=== PATIENT | female | born 1995 | race Caucasian/White ===

== ENCOUNTER 2016-08-06 18:56 | Emergency (ER) | payer OTHER ==
[~2016-08-06] VITALS: Ht 157.5 cm; Wt 51.3 kg
[~2016-08-06 18:56] MED LIST: NORCO 5/325 MG1 TAB PO; ZOFRAN4 M1 PO
[2016-08-06 19:21] VITALS: BP 140/87
--- NOTE | 2016-08-06 19:31 | NUR ---
AMBULATED TO ER BED 4
--- NOTE | 2016-08-06 19:47 | NUR ---
PT BIB BOYFRIEND C/O LOWER ABD PAIN AND N/V SINCE THIS AM. MEDICAL HX OF CHOLECYSTECTOMY AND HTN. PT TAKES FAMTODINE AND DICYCLOMINE FOR GASTRITIS SEEN IN [place] 1 MONTH AGO. . PT STATES N/V/; SKIN IS PINK/WARM/DRY; AAOX4 WITH EVEN AND STEADY GAIT; LUNGS CLEAR BL; HR EVEN AND REGULAR; PT DENIES ANY FEVER, CP, SOB, OR COUGH AT THIS TIME; PATIENT STATES PAIN OF abd pain 10/10 AT THIS TIME; VSS; PATIENT POSITIONED FOR COMFORT; HOB ELEVATED; BEDRAILS UP X2; BED DOWN. ER MD MADE AWARE OF PT STATUS.
--- NOTE | 2016-08-06 19:58 | NUR ---
dr hare at bedside.
[2016-08-06] MEDS ORDERED: NACL 0.9% 500 ML IV ONE (20:04)
[2016-08-06] MEDS ORDERED: ONDANSETRON 4 MG/2 ML VIAL IVP ONE (20:05)
[2016-08-06] MEDS ORDERED: KETOROLAC 30 MG/ML VIAL IVP ONE (20:05)
[2016-08-06] MEDS ORDERED: PANTOPRAZOLE 40 MG INJ VIAL IVP ONE (21:00)
[2016-08-06 21:53] VITALS: BP 126/52
--- NOTE | 2016-08-06 21:54 | NUR ---
Patient discharged with v/s stable. Written and verbal after care instructions given and explained. Patient alert, oriented and verbalized understanding of instructions. Ambulatory with steady gait. All questions addressed prior to discharge. ID band removed. Patient advised to follow up with PMD. Rx of maalox, tramadol, zofran, zantac given. Patient educated on indication of medication including possible reaction and side effects. Opportunity to ask questions provided and answered.
== END 2016-08-06 21:53 | disposition home or self-care (01) ==
LOC: MED 19:01
DX: K29.70 Gastritis, unspecified, without bleeding (principal); R03.0 Elevated blood-pressure reading, without diagnosis of hypertension; Z90.49 Acquired absence of other specified parts of digestive tract
CPT/HCPCS: 36415; 80053; 83690; 85025; 96374; 96375; 99284; C9113; J1885; J2405

== ENCOUNTER 2016-08-21 21:14 | Emergency (ER) | payer OTHER ==
[~2016-08-21] VITALS: Ht 160 cm; Wt 50.8 kg
[2016-08-21 21:43] VITALS: BP 140/96
--- NOTE | 2016-08-21 22:29 | NUR ---
TO ER BED 1
--- NOTE | 2016-08-21 22:30 | NUR ---
21Y F BIB FRIEND C/O AB PAIN AND VOMITING X 4 DAYS. PT STATES SINCE HER GALLBLADDER BEEN REMOVED ON DECEMBER 2015 HERE AT [facility] HER BOWEL MOVEMENT HAS NOT BEEN THE SAME, THOUGH SHE DOES HAVE A BM AT LEAST ONCE DAILY PER PT. SKIN IS PINK/WARM/DRY; AAOX4 WITH EVEN AND STEADY GAIT; LUNGS CLEAR BL; HR EVEN AND REGULAR; PT DENIES ANY FEVER, CP, SOB, OR COUGH AT THIS TIME; PATIENT STATES PAIN OF 10/10 AT THIS TIME; VSS; PATIENT POSITIONED FOR COMFORT; HOB ELEVATED; BEDRAILS UP X2; BED DOWN. ER MD MADE AWARE OF PT STATUS.
--- NOTE | 2016-08-21 23:00 | NUR ---
Patient being evaluated by physician dr hare at bedside.
--- NOTE | 2016-08-21 23:15 | NUR ---
PT MOVED TO ER BED 8
[2016-08-21] MEDS ORDERED: ALUMINUM HYD/MAG/SIMETHICONE 30 ML UDC PO ONE (23:20)
[2016-08-21] MEDS ORDERED: PANTOPRAZOLE 40 MG TABEC PO ONE (23:20)
[2016-08-21] MEDS ORDERED: BELLADONNA/PHENOBARBITAL 5 ML ORASYR PO ONE (23:20)
[2016-08-21] MEDS ORDERED: LIDOCAINE VISCOUS 2% 20 ML UDC PO ONE (23:20)
[2016-08-22 00:49] VITALS: BP 140/96
--- NOTE | 2016-08-22 00:49 | NUR ---
Patient discharged with v/s stable. Written and verbal after care instructions given and explained. Patient alert, oriented and verbalized understanding of instructions. Ambulatory with steady gait. All questions addressed prior to discharge. ID band removed. Patient advised to follow up with PMD. Rx of PROTONIX AND ZOFRAN given. Patient educated on indication of medication including possible reaction and side effects. Opportunity to ask questions provided and answered. BOYFRIEND AT BEDSIDE
== END 2016-08-22 00:49 | disposition home or self-care (01) ==
LOC: MED 21:14
DX: K21.9 Gastro-esophageal reflux disease without esophagitis (principal); Z32.02 Encounter for pregnancy test, result negative

== ENCOUNTER 2017-01-11 22:22 | Inpatient (IN) | payer OTHER ==
[~2017-01-11] VITALS: Ht 157.5 cm; Wt 44.5 kg
[~2017-01-11 22:22] MED LIST changes: +HYDR-4446 PO; -NORCO 5/325 MG1 TAB PO; +ONDA4TAB PO; -ZOFRAN4 M1 PO
[2017-01-11 22:32] VITALS: BP 118/65
[2017-01-11] MEDS ORDERED: ONDANSETRON 4 MG ODT PO ONE (22:40)
[2017-01-11 23:01] LABS: BASOPHILS # (AUTO) 0.2 K/uL (0.00-0.22); BASOPHILS % (AUTO) 1.1 % (0.0-2.0); EOSINOPHILS # (AUTO) 0.3 K/uL (0-0.4); EOSINOPHILS % (AUTO) 1.6 % (0.0-4.0); HEMATOCRIT 37.2 % (36-48); HEMOGLOBIN 12.8 g/dL (12.0-16.0); LYMPHOCYTES # (AUTO) 0.7 K/uL (2.5-16.5); MEAN CORPUSCULAR HEMOGLOBIN 32 pg (27-31); MEAN CORPUSCULAR HGB CONC 34 g/dL (33-37); MEAN CORPUSCULAR VOLUME 92 fL (80-94); MONOCYTES # (AUTO) 0.2 K/uL (0.8-1.0); MONOCYTES % (AUTO) 0.9 % (1.7-9.3); NEUTROPHILS # (AUTO) 16.5 K/uL (1.8-7.7); PLATELET COUNT (AUTO) 251 K/uL (140-450); RED BLOOD CELL COUNT(AUTO) 4.03 MIL/uL (4.20-5.40); RED CELL DISTRIBUTION WIDTH 12.2 % (11.6-13.7); WHITE BLOOD COUNT (AUTO) 17.9 K/uL (4.8-10.8)
[2017-01-11 23:13] LABS: ANION GAP 19.8 (8-16); CALCIUM 9.5 mg/dL (8.5-10.1); CARBON DIOXIDE 19.9 mmol/L (21-32); CREATININE 0.7 mg/dL (0.6-1.3); POTASSIUM 3.7 mmol/L (3.5-5.1)
[2017-01-11 23:21] LABS: ALBUMIN 3.8 g/dL (3.4-5.0); TOTAL BILIRUBIN 0.4 mg/dL (0.0-1.0); TOTAL PROTEIN, SERUM 7.7 g/dL (6.4-8.2)
[2017-01-11 23:22] LABS: NEUTROPHILS % (AUTO) 92.4 % (42.2-75.2)
[2017-01-11 23:53] LABS: BILIRUBIN,URINE NEGATIVE (NEGATIVE); BLOOD, URINE TRACE-I (NEGATIVE); COLOR,URINE YELLOW (YELLOW); LEUKOCYTE ESTERASE ,URINE NEGATIVE (NEGATIVE); NITRITE, URINE NEGATIVE (NEGATIVE); PROTEIN,URINE 2+ (NEGATIVE); UGLUCOSE NEGATIVE (NEGATIVE)
[2017-01-12 00:01] LABS: APPEARANCE,URINE SLIGHTLY CLOUDY (CLEAR)
[2017-01-12 00:02] LABS: RBC,URINE 0-5 (RARE) /HPF (0-5)
[2017-01-12 00:03] LABS: BACTERIA,URINE 2+ /HPF (None Seen); MUCUS,URINE 1+ /LPF (None Seen); SQUAMOUS EPITHELIAL CELL,UR 20-50 /LPF (0-3 (FEW))
[2017-01-12] MEDS ORDERED: NACL 0.9% 1,000 ML IV ONE ×3 (00:10→01:55)
[2017-01-12] MEDS ORDERED: MORPHINE SULFATE 4 MG/ML SYR IVP ONE (00:10)
[2017-01-12] MEDS ORDERED: ONDANSETRON 4 MG/2 ML VIAL IVP ONE (00:10)
[2017-01-12 00:37] LABS: LACTIC ACID 2.7 mmol/L (0.4-2.0)
[2017-01-12] MEDS ORDERED: cefTRIAXone 1,000 MG VIAL ONE (00:55)
[2017-01-12] MEDS ORDERED: NACL 0.9% 1,000 ML IV SCH (02:10)
[2017-01-12] MEDS ORDERED: PANTOPRAZOLE 40 MG INJ VIAL IVP ONE (02:30)
[2017-01-12 03:19] VITALS: BP 97/59
[2017-01-12 04:00] VITALS: BP 126/85
[2017-01-12] MEDS: ONDANSETRON 4 MG/2 ML VIAL IVP PRN ×2 (04:13→08:26)
[2017-01-12] MEDS: MORPHINE SULFATE 2 MG/ML SYR IVP PRN ×2 (04:20→08:33)
[2017-01-12 08:00] VITALS: BP 127/86
[2017-01-12] MEDS: ENOXAPARIN 40 MG/0.4 ML SYR SUBQ SCH (08:31)
[2017-01-12 12:00] VITALS: BP 91/64
[2017-01-12 16:00] VITALS: BP 93/59
[2017-01-12] MEDS: NACL 0.9% 1,000 ML IV SCH (19:47)
[2017-01-12 20:00] VITALS: BP 103/64
[2017-01-13] VITALS (7 sets, daily range): BP systolic 93–135; BP diastolic 55–97
[2017-01-13] MEDS: NACL 0.9% 1,000 ML IV SCH ×2 (05:22→17:43)
[2017-01-13 06:01] LABS: BASOPHILS # (AUTO) 0.3 K/uL (0.00-0.22); BASOPHILS % (AUTO) 3.1 % (0.0-2.0); EOSINOPHILS # (AUTO) 0.1 K/uL (0-0.4); EOSINOPHILS % (AUTO) 1.4 % (0.0-4.0); HEMATOCRIT 28.5 % (36-48); HEMOGLOBIN 9.4 g/dL (12.0-16.0); LYMPHOCYTES # (AUTO) 2.9 K/uL (2.5-16.5); LYMPHOCYTES % (AUTO) 30.3 % (20.5-51.1); MEAN CORPUSCULAR HEMOGLOBIN 31 pg (27-31); MEAN CORPUSCULAR HGB CONC 33 g/dL (33-37); MEAN CORPUSCULAR VOLUME 94 fL (80-94); MONOCYTES # (AUTO) 0.6 K/uL (0.8-1.0); MONOCYTES % (AUTO) 6.5 % (1.7-9.3); NEUTROPHILS # (AUTO) 5.6 K/uL (1.8-7.7); NEUTROPHILS % (AUTO) 58.7 % (42.2-75.2); PLATELET COUNT (AUTO) 183 K/uL (140-450); RED BLOOD CELL COUNT(AUTO) 3.04 MIL/uL (4.20-5.40); RED CELL DISTRIBUTION WIDTH 12.4 % (11.6-13.7); WHITE BLOOD COUNT (AUTO) 9.5 K/uL (4.8-10.8)
[2017-01-13 06:26] LABS: ANION GAP 10.7 (8-16); CALCIUM 7.8 mg/dL (8.5-10.1); CARBON DIOXIDE 23.6 mmol/L (21-32); CREATININE 0.4 mg/dL (0.6-1.3); POTASSIUM 3.3 mmol/L (3.5-5.1)
[2017-01-13 06:35] LABS: MAGNESIUM 1.8 mg/dL (1.8-2.4)
[2017-01-13] MEDS: ONDANSETRON 4 MG/2 ML VIAL IVP PRN (08:16)
[2017-01-13] MEDS: MORPHINE SULFATE 2 MG/ML SYR IVP PRN (08:17)
[2017-01-13] MEDS: ENOXAPARIN 40 MG/0.4 ML SYR SUBQ SCH (08:22)
[2017-01-13] MEDS ORDERED: HYDROmorphone 1 MG/ML AMP IVP PRN (10:10)
[2017-01-13] MEDS ORDERED: METOCLOPRAMIDE 10 MG/2 ML INJ VIAL IVP PRN (10:10)
[2017-01-13] MEDS ORDERED: POTASSIUM CHLORIDE 10 MEQ TABER PO SCH (11:00)
[2017-01-14] VITALS: BP 113/69
[2017-01-14] MEDS: NACL 0.9% 1,000 ML IV SCH (01:31)
[2017-01-14 04:00] VITALS: BP 113/52
[2017-01-14 08:00] VITALS: BP 94/53
[2017-01-14] MEDS ORDERED: CEPH250C16 PO (08:21)
[2017-01-14] MEDS ORDERED: POTASSIUM CHLORIDE 10 MEQ TABER PO SCH (09:00)
[2017-01-14] MEDS: ENOXAPARIN 40 MG/0.4 ML SYR SUBQ SCH (09:57)
[2017-01-14 10:32] VITALS: BP 94/53
== END 2017-01-14 11:40 | disposition home or self-care (01) | DRG 566 ==
LOC: MED 22:22 → MTU 01-12 03:50
PROVIDERS: ADMIT Hospitalist; ATTEND Hospitalist
DX: O98.811 Other maternal infectious and parasitic diseases complicating pregnancy, first trimester (principal); A41.9 Sepsis, unspecified organism; O23.01 Infections of kidney in pregnancy, first trimester; D64.9 Anemia, unspecified; O99.011 Anemia complicating pregnancy, first trimester; Z90.49 Acquired absence of other specified parts of digestive tract; Z3A.13 13 weeks gestation of pregnancy
CPT/HCPCS: 36415; 71010; 76705; 76801; 80048; 80053; 81001; 82150; 83605; 83690; 83735; 84100; 84703; 85025; 87040; 87081; 87086; 96361; 96365; 96375; 99285; C9113; J0696; J1170; J1650; J2270; J2405; J2765; J7030; J7060; Q0092; S0119

== ENCOUNTER 2017-01-18 01:11 | Emergency (ER) | payer OTHER ==
[~2017-01-18] VITALS: Ht 160 cm; Wt 42.2 kg
[~2017-01-18 01:11] MED LIST changes: +CEPH250C16 PO
[2017-01-18 01:20] VITALS: BP 143/97
[2017-01-18] MEDS ORDERED: NACL 0.9% 1,000 ML IV ONE (01:35)
--- NOTE | 2017-01-18 01:36 | NUR ---
PATIENT AMBULATED TO ER OF2.
--- NOTE | 2017-01-18 01:44 | NUR ---
RELAYED TO DR. TURNER RESULT OF URINE DIPSTICK AND URINE
[2017-01-18] MEDS ORDERED: ONDANSETRON 4 MG/2 ML VIAL IVP ONE (01:50)
[2017-01-18] MEDS ORDERED: HYDROmorphone 1 MG/ML AMP IVP ONE ×2 (01:50→03:55)
--- NOTE | 2017-01-18 01:52 | NUR ---
PATIENT BEING EVALUATED BY DR. TURNER.
[2017-01-18] MEDS ORDERED: ONDANSETRON 4 MG/2 ML VIAL ONE (01:54)
[2017-01-18] MEDS ORDERED: HYDROmorphone 1 MG/ML AMP ONE (01:55)
--- NOTE | 2017-01-18 02:40 | NUR ---
PATIENT AMBULATED TO ER BED 6.
--- NOTE | 2017-01-18 02:54 | NUR ---
21/F c/o left flank pain and epigastric pain since this am. 12 weeks , G-1 P-0. Pt also c/o nausea and vomiting. No vomiting noted at this time. Pt c/o 8 pain left flank, sharp, non radiating. AOX4, clear speech. VSS.
--- NOTE | 2017-01-18 03:02 | NUR ---
Pt crying and c/o left flank pain and nausea. Dr. Flaherty made aware.
--- NOTE | 2017-01-18 03:34 | NUR ---
Pt appears to be resting comfortably. Pt is sitting tongan style facing the head of the bed.
[2017-01-18] MEDS ORDERED: PROMETHAZINE 25 MG/ML VIAL IM ONE (03:45)
--- NOTE | 2017-01-18 03:59 | NUR ---
Pt updated on status that she is waiting for US to be done.
[2017-01-18 04:03] LABS: BASOPHILS # (AUTO) 0.1 K/uL (0.00-0.22); BASOPHILS % (AUTO) 0.7 % (0.0-2.0); EOSINOPHILS # (AUTO) 0.2 K/uL (0-0.4); EOSINOPHILS % (AUTO) 1.3 % (0.0-4.0); HEMATOCRIT 42.6 % (36-48); LYMPHOCYTES # (AUTO) 1.3 K/uL (2.5-16.5); LYMPHOCYTES % (AUTO) 6.8 % (20.5-51.1); MEAN CORPUSCULAR HEMOGLOBIN 31 pg (27-31); MEAN CORPUSCULAR HGB CONC 33 g/dL (33-37); MEAN CORPUSCULAR VOLUME 94 fL (80-94); MONOCYTES # (AUTO) 0.4 K/uL (0.8-1.0); MONOCYTES % (AUTO) 1.9 % (1.7-9.3); NEUTROPHILS # (AUTO) 16.4 K/uL (1.8-7.7); PLATELET COUNT (AUTO) 276 K/uL (140-450); RED BLOOD CELL COUNT(AUTO) 4.53 MIL/uL (4.20-5.40); RED CELL DISTRIBUTION WIDTH 12.4 % (11.6-13.7); WHITE BLOOD COUNT (AUTO) 18.4 K/uL (4.8-10.8)
[2017-01-18 04:18] LABS: ANION GAP 17.8 (8-16); CALCIUM 10.1 mg/dL (8.5-10.1); CARBON DIOXIDE 22.8 mmol/L (21-32); CREATININE 0.6 mg/dL (0.6-1.3); POTASSIUM 3.6 mmol/L (3.5-5.1)
--- NOTE | 2017-01-18 04:18 | NUR ---
Pt appears comfortable. Expresses relief of pain and nausea. VSS. All needs addressed. Socks provided.
--- NOTE | 2017-01-18 04:19 | NUR ---
Pt now lying supine in semi fowlers.
[2017-01-18 04:22] LABS: ALBUMIN 4.1 g/dL (3.4-5.0); TOTAL BILIRUBIN 0.4 mg/dL (0.0-1.0); TOTAL PROTEIN, SERUM 8.2 g/dL (6.4-8.2)
[2017-01-18 04:26] LABS: NEUTROPHILS % (AUTO) 89.3 % (42.2-75.2)
--- NOTE | 2017-01-18 05:19 | NUR ---
Dr. Flaherty re-evaluating patient at bedside.
--- NOTE | 2017-01-18 05:36 | NUR ---
IV removed, catheter intact and site benign. Applied folded 4x4 gauze and tape to stop bleeding.
[2017-01-18 05:37] VITALS: BP 99/57
--- NOTE | 2017-01-18 05:37 | NUR ---
Patient discharged with v/s stable. Written and verbal after care instructions given and explained. Patient alert, oriented and verbalized understanding of instructions. Ambulatory with steady gait. All questions addressed prior to discharge. ID band removed. Patient advised to follow up with PMD. Rx of Phenergan supp and Diclegis given. Patient educated on indication of medication including possible reaction and side effects. Opportunity to ask questions provided and answered.
== END 2017-01-18 05:37 | disposition home or self-care (01) ==
LOC: MED 01:11
DX: O26.891 Other specified pregnancy related conditions, first trimester (principal); R10.30 Lower abdominal pain, unspecified; O21.0 Mild hyperemesis gravidarum; Z3A.12 12 weeks gestation of pregnancy; Z90.49 Acquired absence of other specified parts of digestive tract
CPT/HCPCS: 36415; 80053; 81002; 81025; 84702; 85025; 96361; 96372; 96374; 96375; 96376; 99285; J1170; J2405; J2550; J7030

== ENCOUNTER 2017-01-24 15:15 | Emergency (ER) | payer OTHER ==
[~2017-01-24] VITALS: Ht 157.5 cm; Wt 41.8 kg
[2017-01-24 15:21] VITALS: BP 113/80
[2017-01-24 15:43] LABS: BILIRUBIN,URINE NEGATIVE (NEGATIVE); BLOOD, URINE NEGATIVE (NEGATIVE); COLOR,URINE YELLOW (YELLOW); LEUKOCYTE ESTERASE ,URINE NEGATIVE (NEGATIVE); NITRITE, URINE NEGATIVE (NEGATIVE); PROTEIN,URINE NEGATIVE (NEGATIVE); UGLUCOSE NEGATIVE (NEGATIVE); UROBILINOGEN,URINE 0.2 EU/dL (0.2 - 1)
[2017-01-24 15:49] LABS: APPEARANCE,URINE CLEAR (CLEAR)
[2017-01-24] MEDS ORDERED: DICYCLOMINE HCL LIQUID 20 MG, ALUMINUM HYD/MAG/SIMETHICONE 30 ML, LIDOCAINE VISCOUS 2% ... PO ONE ×6 (15:55)
[2017-01-24] MEDS ORDERED: ONDANSETRON 4 MG ODT PO ONE (15:55)
[2017-01-24] MEDS ORDERED: MORPHINE SULFATE 4 MG/ML SYR IVP ONE (16:35)
[2017-01-24] MEDS ORDERED: ONDANSETRON 4 MG/2 ML VIAL IVP ONE (16:35)
[2017-01-24] MEDS ORDERED: NACL 0.9% 1,000 ML IV ONE (16:35)
[2017-01-24 16:45] LABS: HEMATOCRIT 39.2 % (36-48); HEMOGLOBIN 12.9 g/dL (12.0-16.0); MEAN CORPUSCULAR HEMOGLOBIN 31 pg (27-31); MEAN CORPUSCULAR HGB CONC 33 g/dL (33-37); MEAN CORPUSCULAR VOLUME 93 fL (80-94); PLATELET COUNT (AUTO) 252 K/uL (140-450); RED BLOOD CELL COUNT(AUTO) 4.21 MIL/uL (4.20-5.40); RED CELL DISTRIBUTION WIDTH 12.5 % (11.6-13.7); WHITE BLOOD COUNT (AUTO) 16.5 K/uL (4.8-10.8)
[2017-01-24 16:58] LABS: BAND % (MANUAL) 3 % (0-8); LYMPHOCYTES % (MANUAL) 9 % (20-46); MONOCYTES % (MANUAL) 1 % (5-12); NEUTROPHILS % (MANUAL) 87 (43-65); PLATELET ESTIMATE ADEQUATE
[2017-01-24 17:04] LABS: ALBUMIN 3.8 g/dL (3.4-5.0); ANION GAP 16.7 (8-16); CALCIUM 9.3 mg/dL (8.5-10.1); CARBON DIOXIDE 23.9 mmol/L (21-32); CREATININE 0.5 mg/dL (0.6-1.3); POTASSIUM 3.6 mmol/L (3.5-5.1); TOTAL BILIRUBIN 0.3 mg/dL (0.0-1.0); TOTAL PROTEIN, SERUM 7.6 g/dL (6.4-8.2)
[2017-01-24 17:31] VITALS: BP 119/76
== END 2017-01-24 17:31 | disposition home or self-care (01) ==
LOC: MED 15:15
DX: O26.892 Other specified pregnancy related conditions, second trimester (principal); R10.13 Epigastric pain; R11.2 Nausea with vomiting, unspecified; Z90.49 Acquired absence of other specified parts of digestive tract; Z79.899 Other long term (current) drug therapy; Z3A.16 16 weeks gestation of pregnancy
CPT/HCPCS: 36415; 80053; 81003; 81025; 83690; 85025; 96361; 96374; 96375; 99284; J2270; J2405; J7030; S0119

== ENCOUNTER 2017-02-08 04:19 | Observation (INO) | payer OTHER ==
[~2017-02-08] VITALS: Ht 160 cm; Wt 41.3 kg
[~2017-02-08 04:19] MED LIST changes: +ACET-2619 PO
[2017-02-08 04:24] VITALS: BP 120/90
--- NOTE | 2017-02-08 04:31 | NUR ---
AMBULATED TO ER BED 6
--- NOTE | 2017-02-08 04:45 | NUR ---
Patient being evaluated by physician at bedside.
[2017-02-08] MEDS ORDERED: NACL 0.9% 1,000 ML IV SCH (04:51)
[2017-02-08] MEDS ORDERED: ONDANSETRON 4 MG/2 ML VIAL IVP ONE ×2 (04:55→06:20)
[2017-02-08] MEDS ORDERED: ONDANSETRON 4 MG/2 ML VIAL ONE ×2 (05:04→06:18)
--- NOTE | 2017-02-08 05:20 | NUR ---
P21Y/F ATIENT PRESENTS TO ED WITH C/O N/V X 1 DAY . PT STATES IUP 17 WKS WITH ABDOMINAL PAIN WITH HYPEREMESIS; SKIN IS PINK/WARM/DRY; AAOX4 WITH EVEN AND STEADY GAIT; LUNGS CLEAR BL; HR EVEN AND REGULAR; PT DENIES ANY FEVER, CP, SOB, OR COUGH AT THIS TIME; PATIENT STATES PAIN OF 10/10 AT THIS TIME; VSS; PATIENT POSITIONED FOR COMFORT; HOB ELEVATED; BEDRAILS UP X2; BED DOWN. ER MD MADE AWARE OF PT STATUS.
[2017-02-08 05:38] LABS: BASOPHILS # (AUTO) 0.1 K/uL (0.00-0.22); BASOPHILS % (AUTO) 0.8 % (0.0-2.0); EOSINOPHILS # (AUTO) 0.2 K/uL (0-0.4); EOSINOPHILS % (AUTO) 1.7 % (0.0-4.0); HEMATOCRIT 33.7 % (36-48); HEMOGLOBIN 11.2 g/dL (12.0-16.0); LYMPHOCYTES # (AUTO) 1.1 K/uL (2.5-16.5); LYMPHOCYTES % (AUTO) 8.3 % (20.5-51.1); MEAN CORPUSCULAR HEMOGLOBIN 31 pg (27-31); MEAN CORPUSCULAR HGB CONC 33 g/dL (33-37); MEAN CORPUSCULAR VOLUME 94 fL (80-94); MONOCYTES # (AUTO) 0.3 K/uL (0.8-1.0); MONOCYTES % (AUTO) 1.9 % (1.7-9.3); NEUTROPHILS % (AUTO) 87.3 % (42.2-75.2); PLATELET COUNT (AUTO) 226 K/uL (140-450); RED CELL DISTRIBUTION WIDTH 12.9 % (11.6-13.7)
[2017-02-08 05:41] LABS: APPEARANCE,URINE SL CLOUDY (CLEAR); BILIRUBIN,URINE NEGATIVE (NEGATIVE); BLOOD, URINE NEGATIVE (NEGATIVE); COLOR,URINE YELLOW (YELLOW); LEUKOCYTE ESTERASE ,URINE 1+ (NEGATIVE); NITRITE, URINE NEGATIVE (NEGATIVE); PH,URINE 6.5 (5.0-9.0); UGLUCOSE NEGATIVE (NEGATIVE)
[2017-02-08 05:44] LABS: ANION GAP 17.9 (8-16); CARBON DIOXIDE 20.7 mmol/L (21-32); CREATININE 0.6 mg/dL (0.6-1.3); POTASSIUM 3.6 mmol/L (3.5-5.1)
[2017-02-08 05:49] LABS: RBC,URINE 0-5 (RARE) /HPF (0-5)
[2017-02-08 05:51] LABS: WBC,URINE 0-5 (RARE) /HPF (0-5)
[2017-02-08 05:53] LABS: ALBUMIN 3.2 g/dL (3.4-5.0); TOTAL BILIRUBIN 0.3 mg/dL (0.0-1.0)
[2017-02-08 05:54] LABS: WHITE BLOOD COUNT (AUTO) 13.7 K/uL (4.8-10.8)
[2017-02-08] MEDS ORDERED: PROCHLORPERAZINE 10 MG/2 ML VIAL ONE (06:18)
[2017-02-08] MEDS ORDERED: MORPHINE SULFATE 2 MG/ML SYR ONE (06:19)
[2017-02-08] MEDS ORDERED: PROCHLORPERAZINE 10 MG/2 ML VIAL IVP ONE (06:20)
[2017-02-08] MEDS ORDERED: MORPHINE SULFATE 2 MG/ML SYR IVP ONE (06:20)
--- NOTE | 2017-02-08 06:53 | NUR ---
Patient appears to be resting comfortably in bed. Vital Signs within normal limits. Respirations even and unlabored.
--- NOTE | 2017-02-08 07:40 | NUR ---
PATIENT IS COMPLAINING OF 10/10 ABDOMINAL PAIN AT THIS TIME. EDMD MADE AWARE.
[2017-02-08] MEDS ORDERED: MORPHINE SULFATE 4 MG/ML SYR IVP ONE (07:45)
[2017-02-08 07:59] LABS: BARBITURATE, URINE NEG. ng/ml (NEG <=200); BENZODIAZEPINE, URINE NEG. ng/mL (NEG <=200); CANNABINOID, URINE POS. ng/mL (NEG <=50); COCAINE, URINE NEG. ng/mL (NEG <=300); OPIATE, URINE NEG. ng/mL (NEG <=2000); PHENCYCLIDINE SCREEN,URINE NEG. ng/mL (NEG <=25)
--- NOTE | 2017-02-08 08:05 | NUR ---
Dr. Mancuso evaluating patient at bedside.
--- NOTE | 2017-02-08 08:10 | NUR ---
SEEN AND EVALUATED BY DR. CARRERA AT BEDSIDE.
--- NOTE | 2017-02-08 08:35 | NUR ---
ARRIVED ON THE UNIT WITH NINI STEWART RN. PT CAME IN A WHEELCHAIR W/ FATHER AT HER SIDE. PERSONAL BELONGINGS WITH HER. PT IS AWAKE AND ORIENTED. PT AMBULATED INTO THE BED. IV ON R AC 20G SL. DENIES PAIN. DENIES NAUSEA AT THIS TIME. PT SKIN IN TACT. PT ON RA. V/S WITHIN NORMAL RANGE. MRSA SCREENING DONE. DR. CARRERA IS HERE TO ASSESS PT. WILL CHECK ON ORDERS THEY COME IN. WILL CONTINUE TO MONITOR PT.
--- NOTE | 2017-02-08 08:43 | NUR ---
TRANSFERRED PATIENT TO MED-SURG UNIT IN STABLE CONDITION VIA WHEELCHAIR. REPORT GIVEN TO COLLEEN LAWRENCE.
[2017-02-08] MEDS: DEXT 5% /NACL 0.9% 1,000 ML IV SCH ×3 (08:55→21:53)
--- NOTE | 2017-02-08 08:55 | NUR ---
STARTED IV D5NS 1,000ML BAG @150ML/HR. IV AT RIGHT AC 20G.
--- NOTE | 2017-02-08 09:00 | NUR ---
ADMINISTERED ZOFRAN AND IV FLUIDS D5NS AT 150ML/HR. IV ON RIGHT FA 20G. FAMILY IS AT BEDSIDE. WILL CONTINUE TO MONITOR. Addendum: 02/08/17 at 0933 by Jazmín Lomax RN [id number]: D5 NS 1 LITER BAG ADMINISTERED @ 150ML/HR.
[2017-02-08] MEDS: ONDANSETRON 4 MG/2 ML VIAL IVP PRN (09:03)
[2017-02-08 10:00] VITALS: BP 112/71
--- NOTE | 2017-02-08 10:30 | NUR ---
CHECKED ON PT. SLEEPING IN ROOM. PT HAS NO VOMITING OR NAUSEA. DENIES PAIN. WILL CONTINUE TO MONITOR.
--- NOTE | 2017-02-08 11:54 | NUR ---
PATIENT HAS BEEN SCREENED AND CATEGORIZED HIGH NUTRITION RISK. PATIENT WILL BE SEEN WITHIN 1-2 DAYS OF ADMISSION. 02/09/17 - 02/10/17 MARIYA LAGUNAS; [place], RD
[2017-02-08] MEDS: HYDROcodone/APAP 5/325 MG 1 TAB TAB PO PRN ×2 (12:29→20:05)
[2017-02-08] MEDS: METOCLOPRAMIDE 10 MG/2 ML INJ VIAL IVP SCH ×2 (12:29→20:07)
[2017-02-08] MEDS: diphenhydrAMINE 50 MG/ML VIAL IVP SCH ×2 (12:30→20:08)
--- NOTE | 2017-02-08 12:39 | NUR ---
ADMINISTERED REGLAN AND BENADRYL. PT STATED PAIN AT LEVEL 5/10 ON ABDOMINAL AREA. REFUSED NORCO 5MG AFTER OPENING MEDICATION. WASTED MEDICATION. PT STATES "NORCO MAKES ME FEEL NAUSEOUS." PT WILL WAIT FOR RELIEF OF PAIN AFTER TAKING REGLAN AND BENADRYL.
--- NOTE | 2017-02-08 14:09 | NUR ---
CHECKED ON PT IN ROOM. RESTING COMFORTABLY IN BED. PT STATED NO MORE PAIN IN STOMACH AREA. PT IS NOT REQUESTING PAIN MEDS. DENIES NAUSEA. NO VOMITING NOTED. WILL CONTINUE TO MONITOR PT.
--- NOTE | 2017-02-08 15:09 | NUR ---
FINISHED FIRST BAG OF D5NS 1,000ML IV. STARTED SECOND BAG OF D5NS 1,000ML @150ML/HR IV.
[2017-02-08 15:50] VITALS: BP 99/58
--- NOTE | 2017-02-08 15:51 | NUR ---
CHECKED PT VITAL SIGNS. BP 99/58 HR 67 RR 20 O2 SAT 97% TEMP 98.0. PT HAS NO SIGNS OF DISTRESS. DENIES PAIN, NAUSEA, AND VOMITING. REQUESTED JELL-O AND JUICE. TOLERATED INTAKE WELL. WILL CONTINUE TO MONITOR
[2017-02-08] MEDS: ACETAMINOPHEN 325 MG TAB PO PRN (18:24)
--- NOTE | 2017-02-08 18:25 | NUR ---
ADMINISTERED TYLENOL FOR MODERATE PAIN. PT REFUSED NORCO. REQUESTED TYLENOL INSTEAD. WILL CONTINUE TO MONITOR PT.
--- NOTE | 2017-02-08 19:05 | NUR ---
ENDORSED PT REPORT TO DECATOR OPERATOR NURSE AT BEDSIDE FOR CONTINUITY OF CARE. PT IS STABLE CONDITION.
--- NOTE | 2017-02-08 19:30 | NUR ---
RECEIVED REPORT FROM DAY SHIFT NURSE AT BEDSIDE. PT IS ALERT AND ORIENTED X4. PT IS ON ROOM AIR, SKIN INTACT. 20 GAUGE IV ON RIGHT AC IS INTACT, RUNNING D5NS AT 150ML/HR. PT IS STABLE, THERE ARE NO SIGNS OF DISTRESS. VITAL SIGNS WNL. FAMILY AT BEDSIDE. BED IN LOW POSITION, CALL LIGHT WITHIN REACH. WILL CONTINUE TO MONITOR.
--- NOTE | 2017-02-08 19:50 | NUR ---
PAGED ALL PURPOSE CLERK FOR DR CARRERA, SPOKE WITH DR TAPIA. PATIENT C/O 10/10 MIDABDOMINAL PAIN, PATIENT STATED NORCO MAKES HER NAUSEOUS AND DOES NOT WANT IT. MD TAPIA ORDERED MORPHINE 2MG, LET DR KNOW PATIENT IS 18 WEEKS , IF THAT IS SAFE FOR THE BABY. ASKED IF THERE IS OBGYN ON THE CASE. DID NOT SEE A CONSULT FOR OBGYN. STATED MORPHINE IS NOT SAFE FOR THE BABY AND TO TELL PATIENT "SHE EITHER GETS THE NORCO OR HAS TO TOUGH IT OUT." PATIENT AGREED TO TAKE THE NORCO WITH NAUSEA MEDICATION.
--- NOTE | 2017-02-08 20:22 | NUR ---
PM MEDICATIONS GIVEN, NORCO GIVEN FOR 10/10 PAIN. PT TOLERATED WELL. FAMILY AT BEDSIDE. BED IN LOW POSITION, CALL LIGHT WITHIN REACH. WILL CONTINUE TO MONITOR.
--- NOTE | 2017-02-08 21:50 | NUR ---
D5NS BAG EMPTY AT 21:40. SET UP NEW D5NS BAG AT 21:41. PATIENT RESTING, STABLE, WITHOUT ANY SIGNS OF DISTRESS. BED IN LOW POSITION, CALL LIGHT WITHIN REACH. WILL CONTINUE TO MONITOR.
--- NOTE | 2017-02-08 23:50 | NUR ---
PT RESTING NOW. PT SATED MEDICATION HELPED ALLEVIATE THE NAUSEA, VOMITING, AND PAIN. PATIENT IS ON ROOM AIR, WITHOUT ANY SIGNS OF DISTRESS. BED IN LOW POSITION, CALL LIGHT WITHIN REACH. WILL CONTINUE TO MONITOR.
[2017-02-09] VITALS: BP 106/64
--- NOTE | 2017-02-09 02:15 | NUR ---
PATIENT AWAKE AND STATES THAT SHE IS COMFORTABLE AT THE TIME WITHOUT NAUSEA, VOMITING, OR PAIN. IV RUNNING D5NS AT 150ML/HR. PT IS STABLE, THERE ARE NO SIGNS OF DISTRESS. BED IN LOW POSITION, CALL LIGHT WITHIN REACH. WILL CONTINUE TO MONITOR.
[2017-02-09] MEDS: DEXT 5% /NACL 0.9% 1,000 ML IV SCH ×3 (04:30→12:09)
--- NOTE | 2017-02-09 04:37 | NUR ---
D5NS BAG RAN OUT AT 04:34, NEW BAG OF D5NS WAS STARTED AT 04:35. PT IS STABLE, THERE ARE NO SIGNS OF DISTRESS. BED IN LOW POSITION, CALL LIGHT WITHIN REACH. WILL CONTINUE TO MONITOR.
[2017-02-09] MEDS: diphenhydrAMINE 50 MG/ML VIAL IVP SCH ×2 (05:00→12:02)
[2017-02-09] MEDS: METOCLOPRAMIDE 10 MG/2 ML INJ VIAL IVP SCH ×2 (05:00→12:02)
--- NOTE | 2017-02-09 05:20 | NUR ---
PT REFUSED SCHEDULED MEDICATIONS. SHE STATED SHE IS NOT NAUSEOUS AT THE MOMENT, AND STATED SHE WILL ASK FOR NAUSEA MEDICATION WHEN NEEDED. PT IS STABLE, FREE OF DISTRESS. BED IN LOW POSITION, CALL LIGHT WITHIN REACH. WILL CONTINUE TO MONITOR.
[2017-02-09 06:09] LABS: BASOPHILS # (AUTO) 0.2 K/uL (0.00-0.22); BASOPHILS % (AUTO) 1.6 % (0.0-2.0); EOSINOPHILS # (AUTO) 0.1 K/uL (0-0.4); EOSINOPHILS % (AUTO) 1.3 % (0.0-4.0); HEMOGLOBIN 9.7 g/dL (12.0-16.0); LYMPHOCYTES # (AUTO) 2.7 K/uL (2.5-16.5); LYMPHOCYTES % (AUTO) 24.5 % (20.5-51.1); MEAN CORPUSCULAR HEMOGLOBIN 32 pg (27-31); MEAN CORPUSCULAR HGB CONC 34 g/dL (33-37); MEAN CORPUSCULAR VOLUME 95 fL (80-94); MONOCYTES # (AUTO) 0.8 K/uL (0.8-1.0); NEUTROPHILS # (AUTO) 7.4 K/uL (1.8-7.7); NEUTROPHILS % (AUTO) 65.6 % (42.2-75.2); PLATELET COUNT (AUTO) 205 K/uL (140-450); RED BLOOD CELL COUNT(AUTO) 3.06 MIL/uL (4.20-5.40); RED CELL DISTRIBUTION WIDTH 13.3 % (11.6-13.7); WHITE BLOOD COUNT (AUTO) 11.2 K/uL (4.8-10.8)
[2017-02-09 06:41] LABS: ALBUMIN 2.6 g/dL (3.4-5.0); ANION GAP 12.1 (8-16); CARBON DIOXIDE 22.3 mmol/L (21-32); CREATININE 0.5 mg/dL (0.6-1.3); POTASSIUM 3.4 mmol/L (3.5-5.1); TOTAL BILIRUBIN 0.3 mg/dL (0.0-1.0)
--- NOTE | 2017-02-09 07:19 | NUR ---
ENDORSED PATIENT TO DAY SHIFT NURSE FOR CONTINUITY OF CARE. PT STABLE, WITHOUT SIGNS OF DISTRESS.
--- NOTE | 2017-02-09 07:20 | NUR ---
RECEIVED REPORT AT BEDSIDE FOR CONTINUITY OF CARE. PT IS AWAKE AND ORIENTED. INTRODUCED OURSELVES AND UPDATED THE BOARD. V/S IS WNL. PER PT SHE SLEPT WELL. DENIES NAUSEA, OR PAIN. IV STILL IN R AC 20G D5NS AT 150ML STILL INFUSING. IV IS STILL PATENT AND INTACT. BREAKFAST TRAY IS HERE. SHE WILL TRY AND HAVE SOMETHING TO EAT. ENCOURAGE TO HAVE SOMETHING OR AN EMPTY STOMACH CAN MAKE NAUSEA WORSE. WILL CONTINUE TO MONITOR PT.
[2017-02-09] MEDS ORDERED: POTASSIUM CHLORIDE 10 MEQ TABER PO SCH (07:45)
[2017-02-09 08:00] VITALS: BP 114/71
--- NOTE | 2017-02-09 08:00 | NUR ---
DR CARRERA HERE AND SAW THE PT. SHE WILL PUT ORDERS IN FOR D/C TODAY. WILL AWAIT ORDERS.
[2017-02-09] MEDS ORDERED: METO-485 PO (08:08)
--- NOTE | 2017-02-09 08:55 | NUR ---
ADMINISTERED K-DUR PO PER DR. CARRERA ORDER. PT TOLERATED WELL. PT WATCHING TV IN ROOM. NO COMPLAINTS AT THIS TIME. WILL CONTINUE TO MONITOR
[2017-02-09] MEDS: ONDANSETRON 4 MG/2 ML VIAL IVP PRN (09:26)
[2017-02-09] MEDS: HYDROcodone/APAP 5/325 MG 1 TAB TAB PO PRN ×2 (09:26→13:46)
--- NOTE | 2017-02-09 09:26 | NUR ---
PT STATED PAIN 6/10 ON ABDOMINAL AREA AND COMPLAINTS OF FEELING NAUSEOUS. PT REQUESTING NORCO FOR PAIN AND ZOFRAN. ADMINISTERED NORCO AND ZOFRAN. PT TOLERATED WELL. DISCUSSES D/C PLAN FOR LATER TODAY. PT AWARE AND WILL CALL WHEN READY FOR D/C. WILL CONTINUE TO MONITOR.
--- NOTE | 2017-02-09 10:25 | NUR ---
PT VOMITED ABOUT 50ML OF LIQUID. ZOFRAN DIDN'T HELP WITH THE NAUSEA. PT IS RESTING NOW. WILL CONTINUE TO MONITOR PT.
--- NOTE | 2017-02-09 12:02 | NUR ---
ADMINISTERED BENADRYL AND REGLAN. PT COMPLAINING OF PAIN IN ABDOMINAL AREA. GAVE TYLENOL FOR PAIN. WILL CONTINUE TO MONITOR PT.
--- NOTE | 2017-02-09 12:09 | NUR ---
IV BAG OF D5NS 1,000ML FINISHED. STARTED NEW BAG OF D5NS 1,000ML @150ML/HR IV.
[2017-02-09] MEDS: ACETAMINOPHEN 325 MG TAB PO PRN (12:13)
--- NOTE | 2017-02-09 13:40 | NUR ---
SPOKE TO DR. CARRERA ON PHONE ABOUT STATUS OF PT. PT COMPLAINING OF ABDOMINAL PAIN, NAUSEA, AND VOMITING. PT OK TO BE D/C TODAY AND MUST FOLLOW UP WITH PCP AND RN SANE. ADMINISTERED NORCO FOR PAIN. PT AWARE OF D/C LATER TODAY AND STATED SHE HAS AN RN SANE AND APPOINTMENT SET UP. GAVE HEATING PAD TO PT FOR ABDOMEN. PT TOLERATING WELL. WILL CONTINUE TO MONITOR PT.
--- NOTE | 2017-02-09 14:50 | NUR ---
DISCONTINUED IV. REMOVED IV CATHETER FROM RIGHT AC. 20G IV CATHETER TIP INTACT. APPLIED PRESSURE TO SITE. NO BLEEDING NOTED. REMOVED ID BAND. GAVE DISCHARGE INSTRUCTIONS, PRESCRIPTIONS, AND FORMS TO PT. PT SIGNED FORMS AND VERBALIZED UNDERSTANDING. PT WILL GET DRESSED AND READY FOR D/C AND NOTIFY NURSE WHEN READY.
--- NOTE | 2017-02-09 14:55 | NUR ---
PT LEFT UNIT VIA WHEELCHAIR ACCOMPANIED BY FAMILY. PT IN STABLE CONDITION. PT LEFT WITH ALL PERSONAL BELONGINGS.
== END 2017-02-09 12:55 | disposition home or self-care (01) ==
LOC: MED 04:28 → MTU 08:20
PROVIDERS: ADMIT Hospitalist; ATTEND Hospitalist
DX: O21.0 Mild hyperemesis gravidarum (principal); O99.312 Alcohol use complicating pregnancy, second trimester; F12.10 Cannabis abuse, uncomplicated; Z3A.18 18 weeks gestation of pregnancy
CPT/HCPCS: 36415; 76805; 80053; 80305; 81001; 81025; 82150; 83690; 84702; 85025; 87081; 87086; 96361; 96374; 96375; 96376; 99285; G0378; G0482; J0780; J1200; J2270; J2405; J2765; J7030; J7042; Q0092

== ENCOUNTER 2017-02-14 14:53 | Emergency (ER) | payer OTHER ==
[~2017-02-14] VITALS: Ht 123.2 cm; Wt 40.8 kg
[~2017-02-14 14:53] MED LIST changes: -CEPH250C16 PO; +METO-485 PO
[2017-02-14 15:33] VITALS: BP 124/82
--- NOTE | 2017-02-14 15:58 | NUR ---
PT TO BED 4 AT THIS TIME.
--- NOTE | 2017-02-14 16:05 | NUR ---
21F BIB FAMILY C/O SHARP EPIGASTRIC PAIN, RADIATES TO BACK, 03/25 X 1 YEAR WITH HYPEREMESIS; PT STATES " I HAVEN'T STOPPED VOMITING TODAY" BUT STATES NO DIARRHEA AT THIS TIME; PT STATES ADMITTED TO [facility] X 1 WEEK AGO FOR SAME SIGNS/SYMPTOMS; ABDOMEN SOFT, NON-TENDER, ACTIVE BOWEL SOUNDS X 4 QUADRANTS; PT STATES 19 WEEKS AT THIS TIME; PT AA&OX4, PERRLA, BL LUNG SOUNDS CLEAR, RR EVEN/UNLABORED, SKIN IS WARM/DRY/INTACT AT THIS TIME; PT RESTING IN BED WITH HOB ELEVATED AND IN LOWEST POSITION; POSTIONED FOR COMFORT; ER MD MADE AWARE OF STATUS. WILL CONTINUE TO MONITOR.
[2017-02-14] MEDS ORDERED: NACL 0.9% 1,000 ML IV SCH (16:09)
[2017-02-14] MEDS ORDERED: ONDANSETRON 4 MG/2 ML VIAL IVP ONE ×2 (16:10→17:55)
[2017-02-14 16:44] LABS: HEMOGLOBIN 13.2 g/dL (12.0-16.0); MEAN CORPUSCULAR HEMOGLOBIN 32 pg (27-31); MEAN CORPUSCULAR HGB CONC 34 g/dL (33-37); MEAN CORPUSCULAR VOLUME 95 fL (80-94); PLATELET COUNT (AUTO) 261 K/uL (140-450); RED BLOOD CELL COUNT(AUTO) 4.11 MIL/uL (4.20-5.40); RED CELL DISTRIBUTION WIDTH 12.8 % (11.6-13.7); WHITE BLOOD COUNT (AUTO) 18.1 K/uL (4.8-10.8)
[2017-02-14 16:58] LABS: APPEARANCE,URINE HAZY (CLEAR); COLOR,URINE YELLOW (YELLOW); LEUKOCYTE ESTERASE ,URINE NEGATIVE (NEGATIVE); NITRITE, URINE NEGATIVE (NEGATIVE)
[2017-02-14 16:59] LABS: BLOOD, URINE TRACE (NEGATIVE)
[2017-02-14 16:59] LABS: ANION GAP 18.6 (8-16); CREATININE 0.5 mg/dL (0.6-1.3); POTASSIUM 3.6 mmol/L (3.5-5.1)
[2017-02-14 17:00] LABS: BILIRUBIN,URINE NEGATIVE (NEGATIVE); UGLUCOSE NEGATIVE (NEGATIVE)
[2017-02-14 17:01] LABS: RBC,URINE 0-5 /HPF (0-5); WBC,URINE 0-5 /HPF (0-5)
[2017-02-14 17:05] LABS: LYMPHOCYTES % (MANUAL) 2 % (20-46); TOTAL BILIRUBIN 0.4 mg/dL (0.0-1.0)
[2017-02-14] MEDS ORDERED: ACETAMINOPHEN 325 MG TAB PO ONE (17:55)
[2017-02-14] MEDS ORDERED: FAMOTIDINE 20 MG/2 ML VIAL IVP ONE (18:00)
[2017-02-14] MEDS ORDERED: ALUMINUM HYD/MAG/SIMETHICONE 30 ML UDC PO ONE (18:00)
--- NOTE | 2017-02-14 18:19 | NUR ---
IV removed to rt ac, as pt states pain when normal saline flushed through IV, catheter intact and site benign. Pt states no pain to site after IV removed; No redness, swelling, or infiltration noted to site at this time. Applied folded 4x4 gauze and tape to stop bleeding. Pt tolerated procedure well.
--- NOTE | 2017-02-14 19:05 | NUR ---
IV removed, catheter intact and site benign. Applied folded 4x4 gauze and tape to stop bleeding. PT TOLERATED PROCEDURE WELL.
[2017-02-14 19:07] VITALS: BP 127/90
--- NOTE | 2017-02-14 19:07 | NUR ---
Patient discharged with v/s stable. Written and verbal after care instructions given and explained. Patient alert, oriented and verbalized understanding of instructions. Ambulatory with steady gait. All questions addressed prior to discharge. ID band removed. Patient advised to follow up with PMD. Rx of PEPCID 40MG TAB given. Patient educated on indication of medication including possible reaction and side effects. Opportunity to ask questions provided and answered.
== END 2017-02-14 19:07 | disposition home or self-care (01) ==
LOC: MED 15:00
DX: O21.0 Mild hyperemesis gravidarum (principal); O99.612 Diseases of the digestive system complicating pregnancy, second trimester; K29.70 Gastritis, unspecified, without bleeding; Z3A.19 19 weeks gestation of pregnancy; Z79.899 Other long term (current) drug therapy
CPT/HCPCS: 36415; 80053; 81001; 83690; 85025; 87086; 96361; 96374; 96375; 96376; 99284; J2405; J3490; J7030

== ENCOUNTER 2017-10-10 13:02 | Emergency (ER) | payer OTHER ==
[~2017-10-10] VITALS: Ht 157.5 cm; Wt 45.4 kg
[~2017-10-10 13:02] MED LIST changes: +ACET-8386 PO; -HYDR-4446 PO
[2017-10-10 13:08] VITALS: BP 134/116
--- NOTE | 2017-10-10 13:14 | NUR ---
PT TO ER BED 11
--- NOTE | 2017-10-10 13:31 | NUR ---
PT. BIB BROTHER WITH C/O 10/10 RADIATING PAIN THAT STARTS MID ABD AND RADIATES ALL OVER ABD AND TO THE LOWER BACK AND DESCRIBES IT SHARP AND CONTINOUS. PT. STATES " I HAVE BEEN SUFFERING FROM THESE PAINS FOR 2 YEARS, I HAVE SEEN A DOCTOR IN [place] AND RECOMMENDED I SEE A SPECIALIST, BUT I HAVE NOT SEEN A SPECIALIST. " AAOX4, RR EVEN AND UNLABORED , N/V FOR 2 DAYS. NO DIAHRRHEA. LS: CHARLA. Candelaria LUNA NOTIFIED. WILL CONTINUE TO MONITOR
[2017-10-10] MEDS ORDERED: NACL 0.9% 500 ML IV ONE (13:32)
[2017-10-10] MEDS ORDERED: ONDANSETRON 4 MG/2 ML VIAL IVP ONE (13:35)
[2017-10-10] MEDS ORDERED: KETOROLAC 30 MG/ML VIAL IVP ONE (13:35)
[2017-10-10 13:56] LABS: BASOPHILS # (AUTO) 0.1 K/uL (0.00-0.22); BASOPHILS % (AUTO) 0.4 % (0.0-2.0); EOSINOPHILS % (AUTO) 0.2 % (0.0-4.0); HEMATOCRIT 38.4 % (36-48); HEMOGLOBIN 12.6 g/dL (12.0-16.0); LYMPHOCYTES # (AUTO) 1.7 K/uL (2.5-16.5); LYMPHOCYTES % (AUTO) 13.4 % (20.5-51.1); MEAN CORPUSCULAR HEMOGLOBIN 28 pg (27-31); MEAN CORPUSCULAR HGB CONC 33 g/dL (33-37); MONOCYTES # (AUTO) 0.9 K/uL (0.8-1.0); MONOCYTES % (AUTO) 7.6 % (1.7-9.3); NEUTROPHILS # (AUTO) 9.8 K/uL (1.8-7.7); NEUTROPHILS % (AUTO) 78.4 % (42.2-75.2); PLATELET COUNT (AUTO) 274 K/uL (140-450); RED BLOOD CELL COUNT(AUTO) 4.46 MIL/uL (4.20-5.40); RED CELL DISTRIBUTION WIDTH 14.3 % (11.6-13.7); WHITE BLOOD COUNT (AUTO) 12.5 K/uL (4.8-10.8)
[2017-10-10 14:05] LABS: BARBITURATE, URINE NEG. ng/ml (NEG <=200); BENZODIAZEPINE, URINE NEG. ng/mL (NEG <=200); CANNABINOID, URINE POS. ng/mL (NEG <=50); COCAINE, URINE NEG. ng/mL (NEG <=300); OPIATE, URINE NEG. ng/mL (NEG <=2000); PHENCYCLIDINE SCREEN,URINE NEG. ng/mL (NEG <=25)
[2017-10-10 14:10] LABS: ALBUMIN 4.6 g/dL (3.4-5.0); ANION GAP 19.4 (8-16); CREATININE 0.9 mg/dL (0.6-1.3); POTASSIUM 3.4 mmol/L (3.5-5.1); TOTAL BILIRUBIN 0.5 mg/dL (0.0-1.0)
[2017-10-10] MEDS ORDERED: DICYCLOMINE HCL LIQUID 10 MG/5 ML UDC PO ONE (14:15)
[2017-10-10] MEDS ORDERED: ALUMINUM HYD/MAG/SIMETHICONE 30 ML UDC PO ONE (14:15)
[2017-10-10] MEDS ORDERED: LIDOCAINE VISCOUS 2% 20 ML UDC PO ONE (14:15)
[2017-10-10] MEDS ORDERED: fentaNYL 0.05 MG/ML VIAL IVP ONE (14:45)
--- NOTE | 2017-10-10 14:58 | NUR ---
PT. BEING TAKEN FOR XRAY BY ENVIRONMENTAL SAFETY SPECIALIST VIA WHEELCHAIR, RR EVEN AND UNLABORED.
--- NOTE | 2017-10-10 15:04 | NUR ---
IV sodium chloride fluid ended, pt tolerated well.
--- NOTE | 2017-10-10 15:10 | NUR ---
PT. BACK FROM XRAY, RR EVEN AND UNLABORED, PT. STATES PAIN IS 5/10. RESTING COMFORTABLY IN BED. WILL CONTINUE TO MONITOR.
[2017-10-10 16:05] VITALS: BP 126/83
--- NOTE | 2017-10-10 16:08 | NUR ---
Patient discharged with v/s stable. Written and verbal after care instructions given and explained. Patient alert, oriented and verbalized understanding of instructions. Ambulatory with steady gait. All questions addressed prior to discharge. ID band removed. Patient advised to follow up with PMD. Rx of zofran, tramadol given. Patient educated on indication of medication including possible reaction and side effects. Opportunity to ask questions provided and answered.
== END 2017-10-10 16:08 | disposition home or self-care (01) ==
LOC: MED 13:02
DX: R10.13 Epigastric pain (principal); F12.90 Cannabis use, unspecified, uncomplicated; Z79.899 Other long term (current) drug therapy
CPT/HCPCS: 36415; 74022; 80053; 80305; 81002; 81025; 83690; 85025; 96361; 96374; 96375; 99285; J1885; J2405; J3010; J7030

== ENCOUNTER 2017-11-20 01:30 | Emergency (ER) | payer OTHER ==
[~2017-11-20] VITALS: Ht 157.5 cm; Wt 47.6 kg
[2017-11-20 01:32] VITALS: BP 132/74
--- NOTE | 2017-11-20 01:37 | NUR ---
22/F CAME IN W C/O 03/25 LOWER BACK PAIN, N/V X YESTERDAY MORNING. DENIES TRAUMA/INJURY. DENIES PMH/RX/OTC
--- NOTE | 2017-11-20 01:37 | NUR ---
TO BED # 11 VIA W/C REPORT GIVEN TO RENÉE MACIAS
--- NOTE | 2017-11-20 01:43 | NUR ---
Olaf salazar in [facility] - 11/20/17 at [address] Lundy evaluating patient at bedside.
--- NOTE | 2017-11-20 01:50 | NUR ---
Dr. Lundy evaluating patient at bedside.
[2017-11-20] MEDS ORDERED: NACL 0.9% 1,000 ML IV ONE (01:55)
[2017-11-20] MEDS ORDERED: LORazepam 2 MG/ML VIAL IVP ONE (01:55)
[2017-11-20] MEDS ORDERED: KETOROLAC 30 MG/ML VIAL IVP ONE (01:55)
[2017-11-20] MEDS ORDERED: ONDANSETRON 4 MG/2 ML VIAL IVP ONE (01:55)
[2017-11-20 02:45] VITALS: BP 128/71
--- NOTE | 2017-11-20 02:45 | NUR ---
IV removed, catheter intact and site benign. Applied folded 4x4 gauze and tape to stop bleeding.
--- NOTE | 2017-11-20 02:45 | NUR ---
Patient discharged with v/s stable. Written and verbal after care instructions given and explained. Patient alert, oriented and verbalized understanding of instructions. Wheel Chair Assisted with to car. All questions addressed prior to discharge. ID band removed. Patient advised to follow up with PMD. Rx of XANAX, OMEPRAZOLE, ZOFRAN given. Patient educated on indication of medication including possible reaction and side effects. Opportunity to ask questions provided and answered.
== END 2017-11-20 02:45 | disposition home or self-care (01) ==
LOC: MED 01:30
DX: F50.89 Other specified eating disorder (principal); M54.9 Dorsalgia, unspecified; R03.0 Elevated blood-pressure reading, without diagnosis of hypertension; R10.13 Epigastric pain; F12.10 Cannabis abuse, uncomplicated
CPT/HCPCS: 96361; 96374; 96375; 99284; J1885; J2060; J2405; J7030

== ENCOUNTER 2017-11-21 22:57 | Emergency (ER) | payer OTHER ==
[~2017-11-21] VITALS: Ht 157.5 cm; Wt 44.5 kg
[2017-11-21 22:59] VITALS: BP 143/93
--- NOTE | 2017-11-21 23:10 | NUR ---
PT AMBULATED TO ER BED 12
--- NOTE | 2017-11-21 23:10 | NUR ---
PT BROUGHT TO ED BED 10. PT ACTIVELY VOMITING AND GIVEN EMESIS BAG. PT C/O PAIN IN THORACIC REGION OF BACK FOR PAST FEW MONTHS, ACTIVELY VOMITING FROM PAIN WITH COMPLAINTS OF NAUSEA. PT ADMITS N/V; SKIN IS INTACT, PINK/WARM/DRY; AAOX4, PERRL, WITH EVEN AND STEADY GAIT; LUNGS CLEAR BL, BREATHING UNLABORED; HR EVEN AND REGULAR, BL PERIPHERAL PULSES PRESENT; BS ACTIVE X4, TENDER TO PALPATION, NO HEPATOSPLENOMEGALLY PALPATED, RESONANT TO PERCUSSION; PT DENIES ANY FEVER, CP, SOB, OR COUGH AT THIS TIME; PT STATES 10/10 PAIN AT THIS TIME; VSS; PATIENT POSITIONED FOR COMFORT; HOB ELEVATED; BEDRAILS UP X2; BED DOWN. Addendum: 11/21/17 at 2341 by [email or web address] BED 12
[2017-11-22] MEDS ORDERED: diphenhydrAMINE 50 MG/ML VIAL IM ONE
[2017-11-22] MEDS ORDERED: HALOPERIDOL IM 5 MG/ML VIAL IM ONE
[2017-11-22] MEDS ORDERED: LORazepam 2 MG/ML VIAL IM ONE
--- NOTE | 2017-11-22 | NUR ---
pt made aware only one family member to bedside
[2017-11-22] MEDS ORDERED: LORazepam 2 MG/ML VIAL IVP ONE (00:05)
[2017-11-22] MEDS ORDERED: diphenhydrAMINE 50 MG/ML VIAL IVP ONE (00:05)
[2017-11-22] MEDS ORDERED: HALOPERIDOL IM 5 MG/ML VIAL IVP ONE (00:05)
[2017-11-22 00:31] LABS: BASOPHILS # (AUTO) 0.1 K/uL (0.00-0.22); BASOPHILS % (AUTO) 0.6 % (0.0-2.0); EOSINOPHILS % (AUTO) 0.1 % (0.0-4.0); HEMATOCRIT 33.7 % (36-48); HEMOGLOBIN 11.2 g/dL (12.0-16.0); LYMPHOCYTES # (AUTO) 1.2 K/uL (2.5-16.5); LYMPHOCYTES % (AUTO) 10.3 % (20.5-51.1); MEAN CORPUSCULAR HEMOGLOBIN 29 pg (27-31); MEAN CORPUSCULAR HGB CONC 33 g/dL (33-37); MEAN CORPUSCULAR VOLUME 86.7 fL (80-94); MONOCYTES # (AUTO) 0.5 K/uL (0.8-1.0); MONOCYTES % (AUTO) 4.5 % (1.7-9.3); NEUTROPHILS # (AUTO) 10.1 K/uL (1.8-7.7); NEUTROPHILS % (AUTO) 84.5 % (42.2-75.2); PLATELET COUNT (AUTO) 237 K/uL (140-450); RED BLOOD CELL COUNT(AUTO) 3.88 MIL/uL (4.20-5.40); RED CELL DISTRIBUTION WIDTH 14.2 % (11.6-13.7)
[2017-11-22 00:50] LABS: ALBUMIN 4.5 g/dL (3.4-5.0); ANION GAP 16.2 (8-16); CARBON DIOXIDE 23.6 mmol/L (21-32); CREATININE 0.7 mg/dL (0.6-1.3); PHOSPHORUS 1.2 mg/dL (2.5-4.9); TOTAL BILIRUBIN 0.4 mg/dL (0.0-1.0)
--- NOTE | 2017-11-22 00:50 | NUR ---
PT ON STRETCHER IN NO ACUTE DISTRESS AFTER MEDICATION. NO IDENTIFIED REQUESTS AT THIS TIME. FAMILY AT BEDSIDE.
[2017-11-22 00:52] LABS: POTASSIUM 2.8 mmol/L (3.5-5.1)
[2017-11-22] MEDS ORDERED: POTASSIUM CHL 20 MEQ/D5-1/2NS 1,000 ML IV ONE (01:20)
[2017-11-22] MEDS ORDERED: POTASSIUM CHLORIDE 10 MEQ TABER PO ONE (01:20)
--- NOTE | 2017-11-22 01:38 | NUR ---
PT ON GURNIEY IN NO ACUTE DISTRESS, FAMILY AT BEDSIDE, NO IDENTIFIED REQUESTS
--- NOTE | 2017-11-22 01:59 | NUR ---
PT OLIVIER PO POTASSIUM, EDMD MADE AWARE.
--- NOTE | 2017-11-22 02:17 | NUR ---
WAITING FOR ER MD DR CANALES DISCHARGE INSTRUCTIONS AND ANY PRESCRIPTIONS.
--- NOTE | 2017-11-22 02:45 | NUR ---
Patient discharged with v/s stable. Written and verbal after care instructions given and explained. Patient alert, oriented and verbalized understanding of instructions. Ambulatory with steady gait. All questions addressed prior to discharge. ID band removed. Patient advised to follow up with PMD. Rx of BENADRYL, HALOPERIDOL AND POTASSIUM CHLORIDE given. Patient educated on indication of medication including possible reaction and side effects. Opportunity to ask questions provided and answered.
[2017-11-22 02:46] VITALS: BP 91/51
== END 2017-11-22 02:45 | disposition home or self-care (01) ==
LOC: MED 22:57
DX: R10.13 Epigastric pain (principal); M54.5 Low back pain; K21.9 Gastro-esophageal reflux disease without esophagitis; F17.210 Nicotine dependence, cigarettes, uncomplicated; Z79.899 Other long term (current) drug therapy; Z90.49 Acquired absence of other specified parts of digestive tract
CPT/HCPCS: 36415; 80053; 81002; 81025; 83690; 84100; 85025; 96374; 96375; 99284; J1200; J1630; J2060

== ENCOUNTER 2017-11-25 00:15 | Emergency (ER) | payer OTHER ==
[~2017-11-25] VITALS: Ht 157.5 cm; Wt 47.6 kg
[2017-11-25 00:25] VITALS: BP 128/110
--- NOTE | 2017-11-25 00:27 | NUR ---
PT RETURNED TO LOBBY
--- NOTE | 2017-11-25 00:53 | NUR ---
Olaf salazar in [facility] - 11/25/17 at 0054 by TRACEY PT TAKEN TO BED 1
--- NOTE | 2017-11-25 00:54 | NUR ---
PT AMBULATED TO BED 1. FRIEND/FAMILY AT BEDSIDE.
--- NOTE | 2017-11-25 00:58 | NUR ---
22 Y/O F W/C/O C/O BACK PAIN, PELVIC PAIN THAT STARTED YESTERDAY MORNING. PT SEEN HERE IN ER FRIDAY NIGHT FOR SAME COMPLAINT. PT DENIES ANY MED HX. NO OTHER S/S OF DISTRESS NOTED. ER MD MADE AWARE.
--- NOTE | 2017-11-25 01:40 | NUR ---
Dr. Mandujano evaluating patient at bedside.
[2017-11-25] MEDS ORDERED: NACL 0.9% 1,000 ML IV ONE ×2 (01:47→03:20)
[2017-11-25] MEDS ORDERED: DICYCLOMINE HCL LIQUID 20 MG, ALUMINUM HYD/MAG/SIMETHICONE 30 ML, LIDOCAINE VISCOUS 2% ... PO ONE ×3 (01:50)
[2017-11-25] MEDS ORDERED: KETOROLAC 30 MG/ML VIAL IVP ONE (01:50)
[2017-11-25 02:03] LABS: BASOPHILS # (AUTO) 0.1 K/uL (0.00-0.22); BASOPHILS % (AUTO) 1.8 % (0.0-2.0); EOSINOPHILS # (AUTO) 0.1 K/uL (0-0.4); EOSINOPHILS % (AUTO) 0.8 % (0.0-4.0); HEMATOCRIT 35.7 % (36-48); HEMOGLOBIN 11.9 g/dL (12.0-16.0); LYMPHOCYTES # (AUTO) 0.9 K/uL (2.5-16.5); MEAN CORPUSCULAR HEMOGLOBIN 29 pg (27-31); MEAN CORPUSCULAR HGB CONC 33 g/dL (33-37); MEAN CORPUSCULAR VOLUME 86.6 fL (80-94); MONOCYTES # (AUTO) 0.1 K/uL (0.8-1.0); MONOCYTES % (AUTO) 1.7 % (1.7-9.3); NEUTROPHILS # (AUTO) 6.9 K/uL (1.8-7.7); NEUTROPHILS % (AUTO) 84.7 % (42.2-75.2); PLATELET COUNT (AUTO) 234 K/uL (140-450); RED BLOOD CELL COUNT(AUTO) 4.13 MIL/uL (4.20-5.40); RED CELL DISTRIBUTION WIDTH 13.2 % (11.6-13.7); WHITE BLOOD COUNT (AUTO) 8.1 K/uL (4.8-10.8)
[2017-11-25 02:13] LABS: ANION GAP 18.4 (8-16); CARBON DIOXIDE 23.1 mmol/L (21-32); CREATININE 0.7 mg/dL (0.6-1.3); POTASSIUM 3.5 mmol/L (3.5-5.1)
[2017-11-25 02:20] LABS: ALBUMIN 4.8 g/dL (3.4-5.0); PROTHROMBIN TIME 10.6 secs (10.8-13.4); TOTAL BILIRUBIN 0.4 mg/dL (0.0-1.0)
--- NOTE | 2017-11-25 02:38 | NUR ---
PT RESTING IN BED, VSS. FAMILY MEMBER AT BEDSIDE. NO S/S OF DISTRESS NOTED AT THE MOMENT. ER MD MADE AWARE.
[2017-11-25 02:48] LABS: APPEARANCE,URINE SL CLOUDY (CLEAR); BILIRUBIN,URINE NEGATIVE (NEGATIVE); BLOOD, URINE 1+ (NEGATIVE); COLOR,URINE YELLOW (YELLOW); LEUKOCYTE ESTERASE ,URINE NEGATIVE (NEGATIVE); NITRITE, URINE NEGATIVE (NEGATIVE); UGLUCOSE NEGATIVE (NEGATIVE)
[2017-11-25 03:04] LABS: RBC,URINE 3-10 (FEW) /HPF (0-5); WBC,URINE 0-5 (RARE) /HPF (0-5)
[2017-11-25] MEDS ORDERED: LORazepam 2 MG/ML VIAL IVP ONE (03:20)
[2017-11-25] MEDS ORDERED: HYDROcodone/APAP 5/325 MG 1 TAB TAB PO ONE (04:25)
[2017-11-25] MEDS ORDERED: DICYCLOMINE 20 MG/2 ML VIAL IM ONE (04:25)
[2017-11-25 04:50] VITALS: BP 124/72
--- NOTE | 2017-11-25 04:50 | NUR ---
Patient discharged with v/s stable. Written and verbal after care instructions given and explained. Patient alert, oriented and verbalized understanding of instructions. Ambulatory with steady gait. All questions addressed prior to discharge. ID band removed. Patient advised to follow up with PMD. Rx of ATIVAN, AND MYLANTA given. Patient educated on indication of medication including possible reaction and side effects. Opportunity to ask questions provided and answered.
== END 2017-11-25 04:50 | disposition home or self-care (01) ==
LOC: MED 00:15
DX: R10.9 Unspecified abdominal pain (principal); R11.2 Nausea with vomiting, unspecified; M54.9 Dorsalgia, unspecified; K21.9 Gastro-esophageal reflux disease without esophagitis; Z90.49 Acquired absence of other specified parts of digestive tract
CPT/HCPCS: 36415; 74176; 80053; 81001; 83605; 83690; 85025; 85610; 87040; 87086; 96361; 96372; 96374; 96375; 99285; J0500; J1885; J2060; J7030

== ENCOUNTER 2018-10-20 21:39 | Emergency (ER) | payer OTHER ==
[~2018-10-20] VITALS: Ht 157.5 cm; Wt 45.8 kg
[2018-10-20 21:45] VITALS: BP 124/90
--- NOTE | 2018-10-20 21:45 | NUR ---
TO BED #09 VIA WHEELCHAIR
--- NOTE | 2018-10-20 22:00 | NUR ---
PT TO ED WITH C/O ABD PAIN AND N/V X 2 DAYS. PT BROTHER REPORTS "SHE ATE SUSHI AND THEN SHE STARTED THIS". ABD IS SOFT NON TENDER. MILD DISTRESS NOTED. PT STATES "I WANT PAIN MEDICINE, I CANT TAKE IT ANYMORE" PT PLACED INTO BED, PENDING MD VILLEGAS.
[2018-10-20] MEDS ORDERED: NACL 0.9% 1,000 ML IV ONE (22:08)
[2018-10-20] MEDS ORDERED: KETAMINE 10 MG/ML UD SYR **ER IVP ONE (22:10)
[2018-10-20] MEDS ORDERED: MORPHINE SULFATE 2 MG/ML SYR IVP ONE (22:10)
[2018-10-20] MEDS ORDERED: ONDANSETRON 4 MG/2 ML VIAL IVP ONE (22:10)
[2018-10-20 22:26] LABS: BASOPHILS % (AUTO) 0.4 % (0.0-2.0); HEMATOCRIT 45.3 % (36-48); HEMOGLOBIN 15.6 g/dL (12.0-16.0); LYMPHOCYTES % (AUTO) 18.2 % (20.5-51.1); MEAN CORPUSCULAR HEMOGLOBIN 30 pg (27-31); MEAN CORPUSCULAR HGB CONC 34 g/dL (33-37); MEAN CORPUSCULAR VOLUME 88.4 fL (80-94); MONOCYTES # (AUTO) 0.9 K/uL (0.8-1.0); NEUTROPHILS % (AUTO) 73.4 % (42.2-75.2); PLATELET COUNT (AUTO) 321 K/uL (140-450); RED BLOOD CELL COUNT(AUTO) 5.13 MIL/uL (4.20-5.40); RED CELL DISTRIBUTION WIDTH 12.9 % (11.6-13.7); WHITE BLOOD COUNT (AUTO) 10.9 K/uL (4.8-10.8)
[2018-10-20 22:47] LABS: BILIRUBIN,URINE 1+ (NEGATIVE); BLOOD, URINE 3+ (NEGATIVE); COLOR,URINE YELLOW (YELLOW); LEUKOCYTE ESTERASE ,URINE TRACE (NEGATIVE); NITRITE, URINE NEGATIVE (NEGATIVE); UGLUCOSE NEGATIVE (NEGATIVE)
[2018-10-20 22:50] LABS: BARBITURATE, URINE NEG. ng/ml (NEG <=200); BENZODIAZEPINE, URINE POS. ng/mL (NEG <=200); CANNABINOID, URINE POS. ng/mL (NEG <=50); COCAINE, URINE NEG. ng/mL (NEG <=300); OPIATE, URINE NEG. ng/mL (NEG <=2000); PHENCYCLIDINE SCREEN,URINE NEG. ng/mL (NEG <=25)
[2018-10-20 22:51] LABS: ALBUMIN 5.1 g/dL (3.4-5.0); ANION GAP 18.9 (8-16); ASPARTATE AMINOTRANSFERASE 20 U/L (15-37); CARBON DIOXIDE 25.4 mmol/L (21-32); CHLORIDE 96 mmol/L (98-107); CREATININE 0.9 mg/dL (0.6-1.3); GFR ARICAN-AMERICAN 100 mL/min (>90); GLUCOSE 119 mg/dL (74-106); LIPASE 233 U/L (73-393); POTASSIUM 3.3 mmol/L (3.5-5.1); SODIUM SERUM 137 mmol/L (136-145); TOTAL BILIRUBIN 0.5 mg/dL (0.0-1.0); UREA NITROGEN, BLOOD 14 mg/dL (7-18)
[2018-10-20 22:54] LABS: APPEARANCE,URINE HAZY (CLEAR)
[2018-10-20 23:04] LABS: RBC,URINE 11-20 (MOD) /HPF (0-5)
--- NOTE | 2018-10-20 23:56 | NUR ---
PT SLEEPING AT THIS TIME. NO DISTRESS NOTED.
[2018-10-21 00:05] VITALS: BP 118/86
== END 2018-10-21 00:05 | disposition home or self-care (01) ==
LOC: MED 21:39
DX: R11.2 Nausea with vomiting, unspecified (principal); R10.9 Unspecified abdominal pain; K21.9 Gastro-esophageal reflux disease without esophagitis; Z79.899 Other long term (current) drug therapy
CPT/HCPCS: 36415; 80053; 80305; 81001; 81025; 83690; 85025; 87086; 96361; 96374; 96375; 99283; G0482; J2270; J2405; J7030

== ENCOUNTER 2018-11-22 17:17 | Emergency (ER) | payer OTHER ==
[~2018-11-22] VITALS: Ht 160 cm; Wt 44.2 kg
[2018-11-22 17:27] VITALS: BP 122/84
--- NOTE | 2018-11-22 17:35 | NUR ---
BIB FATHER. AAO X4 C/O BACK PAIN X2 DAYS. PT REPORTS UPPER MIDDLE BACK PAIN AND LOWER MIDDLE BACK PAIN THAT RADIATES ACROSS LOWER ABD. + NAUSEA. PT DENIES FEVER, DYSURIA OR DIARRHEA. PT IS GOING TO SPECIALIST TOMORROW FOR RECURRENT EPIGASTRIC PAIN. ER TO EVALUATE PT.
--- NOTE | 2018-11-22 18:29 | NUR ---
PT RETURNED FROM XRAY VIA WHEELCHAIR.
--- NOTE | 2018-11-22 18:43 | NUR ---
Patient discharged with v/s stable. Written and verbal after care instructions given and explained. Patient alert, oriented and verbalized understanding of instructions. Ambulatory with steady gait. All questions addressed prior to discharge. ID band removed. Patient advised to follow up with PMD. Rx of MOTRIN, TRAMADOL given. Patient educated on indication of medication including possible reaction and side effects. Opportunity to ask questions provided and answered.
[2018-11-22 18:44] VITALS: BP 108/63
== END 2018-11-22 18:43 | disposition home or self-care (01) ==
LOC: MED 17:17
DX: M54.9 Dorsalgia, unspecified (principal); K21.9 Gastro-esophageal reflux disease without esophagitis; Z79.899 Other long term (current) drug therapy
CPT/HCPCS: 71045; 72072; 81002; 81025; 99283

== ENCOUNTER 2019-01-06 00:20 | Inpatient (IN) | payer OTHER ==
[~2019-01-06] VITALS: Ht 157.5 cm; Wt 44.5 kg
[2019-01-06 00:28] VITALS: BP 143/77
--- NOTE | 2019-01-06 00:33 | NUR ---
PT TAKEN TO BED 11
--- NOTE | 2019-01-06 00:35 | NUR ---
ASSUMED TEMPORARY CARE OF PT AT THIS TIME FOR PRIMARY RN ON BREAK. C/O DIFFUSE ABDOMINAL PAIN W/ N/V X 1 DAY. PMH: CANNABINOID HYPEREMESIS SYNDROME. AAOX4 WITH EVEN AND STEADY GAIT; PATIENT STATES PAIN OF 10/10; VSS; PATIENT POSITIONED FOR COMFORT; HOB ELEVATED; BEDRAILS UP X2; BED DOWN. ER MD MADE AWARE OF PT STATUS. WILL CONTINUE TO MONITOR.
[2019-01-06] MEDS ORDERED: NACL 0.9% 1,000 ML IV ONE ×2 (00:40→00:55)
[2019-01-06] MEDS ORDERED: ONDANSETRON 4 MG/2 ML VIAL IVP ONE (00:40)
--- NOTE | 2019-01-06 00:41 | NUR ---
Dr. Lundy examining patient.
[2019-01-06] MEDS ORDERED: ONDANSETRON 4 MG/2 ML VIAL ONE (00:51)
[2019-01-06] MEDS ORDERED: LORazepam 2 MG/ML VIAL IVP ONE (00:55)
[2019-01-06] MEDS ORDERED: PANTOPRAZOLE 40 MG INJ VIAL IVP ONE (01:10)
--- NOTE | 2019-01-06 01:10 | NUR ---
ASSUMED CARE OF PT. PT LAYING IN POSITION. PT C/O OF ABDOMINAL PAIN, LEVEL 6/10. ABDOMEN TENDER TO TOUCH. NO FEVER. PT HAS CHILLS AND IS SHIVERING.
[2019-01-06 01:14] LABS: BASOPHILS # (AUTO) 0.1 K/uL (0.00-0.22); BASOPHILS % (AUTO) 0.6 % (0.0-2.0); EOSINOPHILS # (AUTO) 0.1 K/uL (0-0.4); HEMATOCRIT 39.4 % (36-48); HEMOGLOBIN 13.4 g/dL (12.0-16.0); LYMPHOCYTES # (AUTO) 4.7 K/uL (2.5-16.5); LYMPHOCYTES % (AUTO) 48.3 % (20.5-51.1); MEAN CORPUSCULAR HEMOGLOBIN 31 pg (27-31); MEAN CORPUSCULAR HGB CONC 34 g/dL (33-37); MEAN CORPUSCULAR VOLUME 90.5 fL (80-94); MONOCYTES # (AUTO) 0.6 K/uL (0.8-1.0); MONOCYTES % (AUTO) 5.8 % (1.7-9.3); NEUTROPHILS # (AUTO) 4.3 K/uL (1.8-7.7); NEUTROPHILS % (AUTO) 44.3 % (42.2-75.2); PLATELET COUNT (AUTO) 244 K/uL (140-450); RED BLOOD CELL COUNT(AUTO) 4.36 MIL/uL (4.20-5.40); RED CELL DISTRIBUTION WIDTH 13.8 % (11.6-13.7); WHITE BLOOD COUNT (AUTO) 9.7 K/uL (4.8-10.8)
[2019-01-06 01:24] LABS: ANION GAP 13.7 (8-16); CARBON DIOXIDE 27.4 mmol/L (21-32); CREATININE 0.8 mg/dL (0.6-1.3); POTASSIUM 3.1 mmol/L (3.5-5.1)
[2019-01-06 01:30] LABS: ALBUMIN 4.9 g/dL (3.4-5.0); TOTAL BILIRUBIN 0.5 mg/dL (0.0-1.0)
[2019-01-06] MEDS ORDERED: POTASSIUM CHLORIDE 10 MEQ TABER PO ONE (01:40)
[2019-01-06] MEDS ORDERED: INSULIN LISPRO SLIDING SCALE 100 UNITS/ML VIAL SUBQ PRN (01:40)
[2019-01-06] MEDS ORDERED: MORPHINE SULFATE 2 MG/ML SYR IVP PRN (01:40)
[2019-01-06] MEDS ORDERED: MORPHINE SULFATE 2 MG/ML SYR IVP ONE (01:40)
[2019-01-06] MEDS ORDERED: LORazepam 2 MG/ML VIAL IVP PRN (01:40)
[2019-01-06] MEDS ORDERED: DEXTROSE 50% 50 ML SYR IVP PRN (01:40)
[2019-01-06] MEDS ORDERED: ALBUTEROL 0.083% 2.5 MG/3 ML NEBU INH PRN (01:40)
--- NOTE | 2019-01-06 02:05 | NUR ---
Transfer of care AND report given to COLLEEN DOMINIQUE
--- NOTE | 2019-01-06 02:12 | NUR ---
Patient will be admitted to care of DR. MATTHEWS. Admited to MED/SURG. Will go to room 106A. Belongings list completed. Report to COLLEEN DOMINIQUE.
--- NOTE | 2019-01-06 02:15 | NUR ---
ADMITTED THIS 23 YEAR OLD FEMALE FROM ER PER WHEELCHAIR CWITH CC O Addendum: 01/06/19 at 0331 by Clint Dong RN WITH CC OF ABDOMINAL PAIN AND N/V, AMBULATED TO BED WITH STEADY GAIT, ASSESSMENT DONE, PT DROWSY BUT VERBALLY RESPONSIVE BUT PREFER TO SLEEP AT THIS TIME, PT'S BROTHER MILADY PROVIDE PT'S HX AND WILL BRING PT'S HOME MED LATER, PLAN OF CARE DISCUSSED AND ORIENTED TO ROOM AND CALL LIGHT, SAFETY MEASURES IN PLACE, CALL LIGHT WITHIN REACH.
[2019-01-06] MEDS: NACL 0.9% 1,000 ML IV SCH ×3 (02:23→23:05)
[2019-01-06 02:30] VITALS: BP 111/80
--- NOTE | 2019-01-06 02:30 | NUR ---
IVF OF NS A 100ML STARTED, PT SLEEPING, NO SIGNS OF N/V OR PAIN, BED ALARM ON.
--- NOTE | 2019-01-06 03:20 | NUR ---
PT NAUSEATED, VOMITED X2 WITH MOSTLY SALIVA SMALL AMOUNT AND THEN PT WENT BACK TO SLEEP, CONTINUE TO MONITOR CLOSELY.
[2019-01-06] MEDS: MORPHINE SULFATE 4 MG/ML SYR IVP PRN ×3 (04:37→22:22)
[2019-01-06] MEDS: METOCLOPRAMIDE 10 MG/2 ML INJ VIAL IVP SCH ×3 (04:38→20:33)
--- NOTE | 2019-01-06 04:40 | NUR ---
PT WITH SEVERE ABDOMINAL PAIN 03/25, BP-132/81, HR-111, NAUSEATED BUT NO VOMITING NOTED, MEDICATED PRN WITH MORPHINE AND DUE REGLAN, MONITORED CLOSELY.
--- NOTE | 2019-01-06 05:30 | NUR ---
PT SEEN SLEEPING, NO SIGNS OF DISTRESS, IVF INFUSING WELL, BROTHER MILADY AT BEDSIDE.
[2019-01-06] MEDS: BLOOD GLUCOSE MONITORING 1 DEV DEV FS SCH ×4 (06:35→20:33)
--- NOTE | 2019-01-06 07:21 | NUR ---
PT AWAKE WITH BROTHER AT BEDSIDE, ENDORSE TO COLLEEN COE FOR CONTINUITY OF CARE
--- NOTE | 2019-01-06 07:22 | NUR ---
RECEIVED BEDSIDE REPORT FROM MARKETING BUDGET ANALYST NURSE. PATIENT ON MED SURGE FLOOR WITH STANDARD PRECAUTIONS IN PLACE. PATIENT AAOX4, ON ROOM AIR, NO DISTRESS NOTED. SKIN INTACT, PATIENT AMBULATORY, AND CONTINENT. IV ON L AC 18 G INFUSING NS AT 100, IV PATENT AND INTACT. BED IN LOW POSITION, CALL LIGHT WITHIN REACH, SIDE RAILS X2 UP
[2019-01-06 08:00] VITALS: BP 132/87
--- NOTE | 2019-01-06 08:43 | NUR ---
PATIENT HAS BEEN SCREENED AND CATEGORIZED HIGH NUTRITION RISK. PATIENT WILL BE SEEN WITHIN 1-2 DAYS OF ADMISSION. 01/06/19-01/07/[address]
[2019-01-06] MEDS ORDERED: POTASSIUM CHLORIDE 40 MEQ, LIDOCAINE MPF 1% - 5 mL VIAL 25 MG in NACL 0.9% 250 ML IV PRN (10:50)
--- NOTE | 2019-01-06 10:53 | NUR ---
PATIENT LYING IN BED COMFORTABLY, ON ROOM AIR, PAIN MED ADMINISTERED PREVIOUSLY
--- NOTE | 2019-01-06 11:25 | NUR ---
PATIENT SLEEPING COMFORTABLY, ON ROOM AIR, NO DISTRESS NOTED
[2019-01-06] MEDS: ERYTHROMYCIN ETHYLSUCCINATE SUSP 200 MG/5 ML UDC PO SCH ×2 (12:09→20:35)
--- NOTE | 2019-01-06 12:16 | NUR ---
ADMINISTERED SCHEDULED MEDS. PATIENT TOLERATED WELL. IN POSITION, SINCE IT IS MOST COMFORTABLE FOR HER ABDOMINAL DISCOMFORT
--- NOTE | 2019-01-06 13:07 | NUR ---
01/06/19 RD INITIAL ASSESSMENT COMPLETED PLEASE REFER TO NUTRITION ASSESSMENT UNDER CARE ACTIVITY FOR ESTIMATED NUTRITIONAL NEEDS. 1. RECOMMEND BLAND DIET TOLERATED 2. RECOMMEND ENSURE BID 3. RD PROVIDED GASTROPARESIS NUTRITION THERAPY HANDOUT TO PATIENT AND FAMILY 4. ENCOURAGE PO INTAKE 5. RD TO FOLLOW-UP 2-3 DAYS, HIGH RISK MERCEDEZ CHAVES, RD
--- NOTE | 2019-01-06 15:00 | NUR ---
DR. MATTHEWS NOTIFIED OF CONTINUOUS VOMITING OF PATIENT. DR. SOL GUTIERREZ IS NOT GIVEN FOR WHAT SHE HAS
--- NOTE | 2019-01-06 15:23 | NUR ---
CONTACTED PATIENT'S PCP DR. RATLIFF , [address] [facility] [address], [place] [address], ABLE TO SPEAK TO MARLENELionel. SHE PROVIDED ME WITH December AT 10:45AM. COPY OF APPOINTMENT PROVIDED TO THE PATIENT. INSTRUCTED THE PATIENT TO CALL AHEAD OF TIME IF SHE IS NOT ABLE TO KEEP THE APPOINTMENT AND TO BRING DISCHARGE PACKET WITH HER TO HER APPOINTMENT. PRIMARY RN USHA MADE AWARE.
[2019-01-06 16:00] VITALS: BP 99/60
--- NOTE | 2019-01-06 18:29 | NUR ---
PATIENT SLEEPING, ON ROOM AIR, NO DISTRESS NOTED
--- NOTE | 2019-01-06 19:05 | NUR ---
GAVE BEDSIDE REPORT TO TREE SAPPER RN. PATIENT ENDORSED IN STABLE CONDITION
--- NOTE | 2019-01-06 19:25 | NUR ---
RECEIVED FROM AM RN PT. SLEEPING IN A POSITION. REFUSING TO WAKE UP. FAMILY MEMBERS IN HERE VISITING. NO COMPLAINTS DONE. MADE SURE CALL LIGHT WITH IN REACH. NO RESTLESSNESS NOTED. IVF SITE INTACT AND INFUSING WELL . DX. OF GASTROPARESIS.
[2019-01-06] MEDS ORDERED: FAMOTIDINE 20 MG/2 ML VIAL IV SCH (21:00)
[2019-01-06 22:19] VITALS: BP 136/100
--- NOTE | 2019-01-06 22:30 | NUR ---
PT. MEDICATED WITH MORPHINE PER REQUEST RT CRYING LOUDLY STATING SHE HAS PAIN FROM THE UPPER ABDOMEN POINTING TO ALMOST HER STERNUM AREA AND SHE TOLD ME THAT THIS IS USUALLY WHAT IS HAPPENING IF IT ATTACKS HER. PT. WANTED MORPHINE IVP 4 MG. MEDICATED REQUESTED AND ORDERED. PT. SAID THAT SHE WOULD USUALLY START COUGHING AND VOMITING AT THE SAME TIME WHEN THE PAIN STARTS. MD AWARE OF THIS SITUATION PER AM RN.
[2019-01-07 00:06] VITALS: BP 118/82
--- NOTE | 2019-01-07 00:09 | NUR ---
SLEEPING WELL. WAKES UP WHEN TOUCHED. VS TAKEN. NO COMPLAINTS OF ANY PAIN AT THIS TIME. CALL LIGHT WITH IN REACH.
--- NOTE | 2019-01-07 01:37 | NUR ---
COVERING FOR SE MACIAS. PT COMPLAIN OF NAUSEA. EMESIS X1 PAGED DR MATTHEWS. BIG 6 DEALER MD FLORES PAGED BACK NEW ORDER FOR ZOFRAN 4MG Q6 PRN.
[2019-01-07] MEDS ORDERED: ONDANSETRON 4 MG/2 ML VIAL IVP PRN (01:40)
--- NOTE | 2019-01-07 02:00 | NUR ---
SLEEPING. NO RESTLESSNESS. CALL LIGHT WITH IN REACH.
[2019-01-07] MEDS: METOCLOPRAMIDE 10 MG/2 ML INJ VIAL IVP SCH (06:19)
[2019-01-07] MEDS: ERYTHROMYCIN ETHYLSUCCINATE SUSP 200 MG/5 ML UDC PO SCH (06:19)
[2019-01-07] MEDS: BLOOD GLUCOSE MONITORING 1 DEV DEV FS SCH (06:25)
[2019-01-07 06:32] VITALS: BP 130/86
--- NOTE | 2019-01-07 06:47 | NUR ---
PT. REQUESTED FOR PAIN RELIEVER RT HURTING HER BACK WHEN SHE COUGHS. MEDICATED WITH MORPHINE 2 MG IVP ORDERED. PT. ABLE TO VERBALIZE NEEDS WELL. KEPT DRY, CLEAN AND WARM. CALL LIGHT WITH IN REACH.
--- NOTE | 2019-01-07 07:20 | NUR ---
RECEIVED BEDSIDE REPORT FROM ASSEMBLER TYPE BAR AND SEGMENT NURSE FOR CONTINUITY OF CARE. PATIENT AWAKE AND SITTING UP ON BED. PATIENT AAOX4. DENIED PAIN AT THIS TIME. RESPIRATION EVEN AND UNLABORED ON RA. NO SIGNS OF DISTRESS NOTED. IV ON LAC 18G, CLEAN AND DRY, INFUSING AT PER MD ORDER. SKIN CLEAN AND INTACT. PATIENT IS CONTINENT AND ABLE TO AMBULATE. SAFETY MEASURES IN PLACE. BED ALARM ACTIVATED. BED IN LOW POSITION AND CALL LIGHT WITHIN REACH.
--- NOTE | 2019-01-07 07:28 | NUR ---
PATIENT IS TALKING TO BROTHNINI HENNING AT BEDSIDE. NO SIGNS OF DISTRESS NOTED.SAFETY MEASURES IN PLACE. BED IN LOW POSITION AND CALL LIGHT WITHIN REACH. ALCOHOL WITHDRAWAL PRECAUTION IN PLACE.
[2019-01-07 07:31] LABS: BASOPHILS % (AUTO) 0.3 % (0.0-2.0); EOSINOPHILS % (AUTO) 0.1 % (0.0-4.0); HEMATOCRIT 36.6 % (36-48); HEMOGLOBIN 12.4 g/dL (12.0-16.0); LYMPHOCYTES # (AUTO) 2.4 K/uL (2.5-16.5); LYMPHOCYTES % (AUTO) 26.7 % (20.5-51.1); MEAN CORPUSCULAR HEMOGLOBIN 30 pg (27-31); MEAN CORPUSCULAR HGB CONC 34 g/dL (33-37); MEAN CORPUSCULAR VOLUME 89.7 fL (80-94); MONOCYTES # (AUTO) 0.6 K/uL (0.8-1.0); MONOCYTES % (AUTO) 6.4 % (1.7-9.3); NEUTROPHILS # (AUTO) 5.9 K/uL (1.8-7.7); NEUTROPHILS % (AUTO) 66.5 % (42.2-75.2); PLATELET COUNT (AUTO) 170 K/uL (140-450); RED BLOOD CELL COUNT(AUTO) 4.08 MIL/uL (4.20-5.40); RED CELL DISTRIBUTION WIDTH 13.6 % (11.6-13.7); WHITE BLOOD COUNT (AUTO) 8.8 K/uL (4.8-10.8)
--- NOTE | 2019-01-07 07:35 | NUR ---
PATIENT REQUESTED TO LEAVE AMA. EXPLAINED TO PATIENT ALL THE POSSIBLE RISKS OF LEAVING AGAINST MEDICAL ADVICES, PATIENT VERBALIZED UNDERSTANDING. PNEUMATIC JACKETER SPOKE TO PATIENT AND BROTHER MILADY. NOTIFIED TOLL LINE REPAIRER. NOTIFIED DR MATTHEWS AND DR MATTHEWS WAS AWARE THAT PATIENT IS LEAVING AMA.
--- NOTE | 2019-01-07 07:40 | NUR ---
PATIENT SIGNS THE AMA FORM AND ACKNOWLEDGE THE POSSIBLE RISKS OF OF LEAVING AMA. D/C IV AND CANNULA INTACT, NO BLEEDING AT IV SITE. REMOVED ALL ARM BANDS. PATIENT CHANGED INTO HER OWN CLOTHES. PATIENT TOOK ALL HER BELONGINGS. PATIENT IS LEAVING AT THIS TIME AND ACCOMPANIED BY HER BROTHER MILADY.
[2019-01-07 07:53] LABS: ALBUMIN 4.2 g/dL (3.4-5.0); ANION GAP 14.2 (8-16); CARBON DIOXIDE 23.8 mmol/L (21-32); CREATININE 0.8 mg/dL (0.6-1.3); MAGNESIUM 1.8 mg/dL (1.8-2.4); TOTAL BILIRUBIN 0.5 mg/dL (0.0-1.0)
== END 2019-01-07 07:40 | disposition left against medical advice (07) | DRG 254 ==
LOC: MED 00:20 → MTU 01:42
PROVIDERS: ADMIT Internal Medicine Pulmonary Disease; ATTEND Internal Medicine Pulmonary Disease
DX: K31.89 Other diseases of stomach and duodenum (principal); D62 Acute posthemorrhagic anemia; D50.9 Iron deficiency anemia, unspecified; K21.9 Gastro-esophageal reflux disease without esophagitis; N92.0 Excessive and frequent menstruation with regular cycle; K31.84 Gastroparesis; Z53.21 Procedure and treatment not carried out due to patient leaving prior to being seen by health care provider; Z88.8 Allergy status to other drugs, medicaments and biological substances; R11.10 Vomiting, unspecified; T40.7X5A Adverse effect of cannabis (derivatives), initial encounter; Y92.89 Other specified places as the place of occurrence of the external cause
CPT/HCPCS: 36415; 80053; 82948; 83690; 83735; 85025; 87081; 96374; 96375; 99285; C9113; J1815; J2001; J2060; J2270; J2405; J2765; J3480; J3490; J7030

== ENCOUNTER 2019-06-18 07:46 | Inpatient (IN) | payer OTHER ==
[~2019-06-18] VITALS: Ht 160 cm; Wt 48.5 kg
[2019-06-18 07:49] VITALS: BP 94/54
--- NOTE | 2019-06-18 07:55 | NUR ---
PT AMBULATED TO ED BED 11.
[2019-06-18] MEDS ORDERED: CAPSAICIN 0.025% CRE 60 GM TUBE TP STA (08:01)
--- NOTE | 2019-06-18 08:01 | NUR ---
PT PRESENTS TO ED WITH C/O EPIGASTRIC PAIN WITH N/V X 3 DAYS. PT ADMITTED SMOKE MARIJAUNNA 2 DAYS AGO. PT AAO X4, GCS 15, ABLE TO SPEAK WITH FULL COMPLETE SENTENCES. RESPIRATIONS EVEN AND UNLABORED, BL LUNG CLEAR. SKIN WARM/PINK/DRY, +PMSC. ABDOMEN FLAT, SOFT, NON DISTENDED, ACTIVE BOWEL SOUND X4. IT RISK AND ASSURANCE SENIOR MANAGER ST HR 110'S, BP WNL. STATED ABDOMINAL PAIN 10/10 WITH EPISODE OF N/V. DR. BURKS MADE AWARE OF PT STATUS, VERBALIZED UNDERSTANDING.
[2019-06-18] MEDS ORDERED: NACL 0.9% 1,000 ML IV ONE ×3 (08:05→10:15)
[2019-06-18] MEDS ORDERED: LORazepam 2 MG/ML VIAL IVP ONE (08:05)
[2019-06-18] MEDS ORDERED: ONDANSETRON 4 MG/2 ML VIAL IVP ONE (08:05)
[2019-06-18 08:33] LABS: BASOPHILS % (AUTO) 0.2 % (0.0-2.0); EOSINOPHILS % (AUTO) 0.3 % (0.0-4.0); HEMATOCRIT 47.3 % (36-48); HEMOGLOBIN 15.7 g/dL (12.0-16.0); LYMPHOCYTES # (AUTO) 1.3 K/uL (2.5-16.5); LYMPHOCYTES % (AUTO) 12.7 % (20.5-51.1); MEAN CORPUSCULAR HEMOGLOBIN 30 pg (27-31); MEAN CORPUSCULAR HGB CONC 33 g/dL (33-37); MONOCYTES # (AUTO) 0.6 K/uL (0.8-1.0); MONOCYTES % (AUTO) 5.9 % (1.7-9.3); NEUTROPHILS # (AUTO) 8.2 K/uL (1.8-7.7); NEUTROPHILS % (AUTO) 80.9 % (42.2-75.2); PLATELET COUNT (AUTO) 284 K/uL (140-450); RED CELL DISTRIBUTION WIDTH 12.8 % (11.6-13.7); WHITE BLOOD COUNT (AUTO) 10.1 K/uL (4.8-10.8)
[2019-06-18 08:54] LABS: ALBUMIN 4.6 g/dL (3.4-5.0); ANION GAP 21.8 (8-16); CREATININE 1.1 mg/dL (0.6-1.3); TOTAL BILIRUBIN 0.4 mg/dL (0.0-1.0)
[2019-06-18 09:06] LABS: POTASSIUM 2.8 mmol/L (3.5-5.1)
--- NOTE | 2019-06-18 09:20 | NUR ---
PATIENT STATES THAT THE CREAM IS BURNING HER CHEST. CREAM REMOVED WITH WET CLOTH AND SECOND COOL CLOTH PLACED ON CHEST TO RELIEVE PAIN.
--- NOTE | 2019-06-18 09:40 | NUR ---
PT HAVING EPSIDE OF N/V AND RESTLESS. REMAINS GCS 15. DR.. BURKS MADE AWARE OF PT STATUS. NEW ORDER TO GIVE HADOL 5 MG IVP. WILL CONTINUE TO MONITOR
[2019-06-18] MEDS ORDERED: HALOPERIDOL IM 5 MG/ML VIAL IVP ONE (09:45)
[2019-06-18 10:47] LABS: BARBITURATE, URINE NEG. ng/ml (NEG <=200); BENZODIAZEPINE, URINE NEG. ng/mL (NEG <=200); CANNABINOID, URINE POS. ng/mL (NEG <=50); COCAINE, URINE NEG. ng/mL (NEG <=300); OPIATE, URINE NEG. ng/mL (NEG <=2000); PHENCYCLIDINE SCREEN,URINE NEG. ng/mL (NEG <=25)
--- NOTE | 2019-06-18 11:28 | NUR ---
PT REMAINS GCS 15, CALM AND COOPERATIVE WITH CARE AT THIS TIME. NO ACUTE DISTRESS NOTED. AMBULATORY WITH STDEAY GAIT TO BATHROOM
[2019-06-18 12:26] LABS: APPEARANCE,URINE CLEAR (CLEAR); BILIRUBIN,URINE NEGATIVE (NEGATIVE); BLOOD, URINE NEGATIVE (NEGATIVE); COLOR,URINE YELLOW (YELLOW); LEUKOCYTE ESTERASE ,URINE NEGATIVE (NEGATIVE); NITRITE, URINE NEGATIVE (NEGATIVE); UGLUCOSE NEGATIVE (NEGATIVE)
[2019-06-18] MEDS ORDERED: KETAMINE 10 MG/ML UD SYR **ER IVP ONE (12:40)
--- NOTE | 2019-06-18 13:27 | NUR ---
PT LAYING IN BED SLEEPING, AROUSABLE TO NAME, FAMILY AT BEDSIDE. RR MILDLY TACHYPNIC BUT NOT LABORED. VSS. ALL NEEDS MET AT THIS TIME.
[2019-06-18] MEDS ORDERED: ACETAMINOPHEN 325 MG TAB PO PRN (13:50)
--- NOTE | 2019-06-18 14:20 | NUR ---
RECEIVED REPORT FROM ER NURSE FOR CONTINUITY OF CARE. PT IS AAOX4, AMBULATORY AND ABLE TO MAKE NEEDS KNOWN. PT CAME IN FOR N/V, AND ABD PAIN. PT STILL PRESENTS WITH PRIOR. PT LUNG SOUNDS CLEAR, PT HAS IV IN THE LEFT AC 20G TO INFUSE LR @ 80. PT POTASSIUM LOW AT 2.8. WILL GIVE POTASSIUM IV. EXPLAINED POC WITH PT AND PT VERBALIZED UNDERSTANDING OF TEACHING. ALL NEEDS MET. WILL MEDICATE PT FOR N/V RELIEF WHEN MEDS BECOME AVAILABLE TO GIVE.
--- NOTE | 2019-06-18 14:26 | NUR ---
Patient will be admitted to care of . [place] [facility] 119[facility]. Belongings list completed. Report to ALAYNA.
[2019-06-18] MEDS: MORPHINE SULFATE 2 MG/ML SYR IVP PRN (14:55)
[2019-06-18] MEDS: LACTATED RINGERS 1,000 ML IV SCH (14:55)
[2019-06-18] MEDS: ONDANSETRON 4 MG/2 ML VIAL IVP PRN ×2 (14:55→21:10)
--- NOTE | 2019-06-18 16:22 | NUR ---
PT SLEEPING. ALL NEEDS MET. WILL CONTINUE TO ROUND FREQUENTLY ON PT.
[2019-06-18] MEDS: KCL 20 MEQ/WATER INJ PREMIX 200 ML IV SCH ×2 (17:06→21:08)
--- NOTE | 2019-06-18 18:57 | NUR ---
PT HAD ANOTHER VOMITING SPELL. PT ZOFRAN GIVEN. NOT DUE FOR ANOTHER HR AND A HALF. PT AWARE AND VERBALIZED UNDERSTANDING.
--- NOTE | 2019-06-18 19:48 | NUR ---
ENDORSED PT TO HONING MACHINE OPERATOR SEMIAUTOMATIC FOR CONTINUITY OF CARE. PT IN STABLE CONDITION.
--- NOTE | 2019-06-18 19:50 | NUR ---
PT. SLEEPING AT THIS TIME. PER AM RN SHE HAD HER ANTI NAUSEA MEDICATION AND AFTER THAT HAD RELIEF FROM VOMITING. CALL LIGHT AT BEDSIDE AND ABLE TO USE IT FOR HELP. A/O X 4. ROM X 4 IF AWAKE PER AM RN. BED ALARM ON. DX. INTRACTABLE VOMITING.
[2019-06-18] MEDS: FAMOTIDINE 20 MG/2 ML VIAL IV SCH (21:09)
[2019-06-18] MEDS: METOCLOPRAMIDE 10 MG/2 ML INJ VIAL IVP SCH (21:09)
[2019-06-18] MEDS: MORPHINE SULFATE 4 MG/ML SYR IVP PRN (21:27)
[2019-06-18 21:29] VITALS: BP 125/85
--- NOTE | 2019-06-18 22:22 | NUR ---
WOKE UP CRYING OUT LOUD AND ASKING FOR PAIN RELIEVER AND ANTI NAUSEA MEDICINE IVP. ABLE TO VERBALIZE NEEDS WELL. EDUCATED RE" MORPHINE SIDE EFFECTS LIKE NAUSEA AND VOMITING. "I KNOW AND I NEED IT" MEDICATED REQUESTED. SLEEPING AFTER MEDICATION. VITAL SIGNS WITH IN NORMAL LIMITS. CALL LIGHT WITH IN REACH.
[2019-06-19 00:12] VITALS: BP 119/82
[2019-06-19] MEDS: KCL 20 MEQ/WATER INJ PREMIX 200 ML IV SCH (00:36)
[2019-06-19] MEDS: LACTATED RINGERS 1,000 ML IV SCH (02:42)
--- NOTE | 2019-06-19 03:00 | NUR ---
PT. SEEN AMBULATING TOWARDS RESTROOM. INDEPENDENT. ABLE TO VERBALIZE NEEDS WELL. CALL LIGHT WITH IN REACH. NO FURTHER COMPLAINTS DONE OF BEING NAUSEOUS OR ANY VOMITING . ENCOURAGED TO CALL FOR ANY HELP SHE MAY NEED. IVF SITE INTACT AND NO INFILTRATION.
[2019-06-19] MEDS: METOCLOPRAMIDE 10 MG/2 ML INJ VIAL IVP SCH ×3 (04:56→17:02)
--- NOTE | 2019-06-19 05:57 | NUR ---
NO COMPLAINTS DONE AT THIS TIME. DENIES PAIN. ABLE TO VERBALIZE WELL WITH ME.
--- NOTE | 2019-06-19 07:25 | NUR ---
RECEIVED REPORT FROM PROGRAM CLINICIAN NURSE FOR CONTINUATION OF CARE. PATIENT IS VOMITING AND COMPLAINING OF NAUSEA. PATIENT TO BE MEDICATED WITH ZOFRAN. BED IN LOW POSITION, PATIENT IS AAOX4. CALL LIGHT ON AND WITHIN REACH. WILL CONTINUE TO MONITOR.
[2019-06-19 08:00] VITALS: BP 104/61
[2019-06-19] MEDS: MORPHINE SULFATE 4 MG/ML SYR IVP PRN (08:27)
[2019-06-19] MEDS: FAMOTIDINE 20 MG/2 ML VIAL IV SCH ×2 (08:27→21:52)
[2019-06-19] MEDS: ONDANSETRON 4 MG/2 ML VIAL IVP PRN (08:27)
--- NOTE | 2019-06-19 08:45 | NUR ---
PATIENT HAS BEEN SCREENED AND CATEGORIZED MODERATE NUTRITION RISK. PATIENT WILL BE SEEN WITHIN 3-5 DAYS OF ADMISSION. 06/21/2019-06/23/[address]
--- NOTE | 2019-06-19 10:00 | NUR ---
MEDICATIONS GIVEN AND TOLERATED WELL, PATIENT IS RESTING IN BED WILL CONTINUE TO MONITOR.
[2019-06-19] MEDS: LORazepam 2 MG/ML VIAL IVP PRN (10:45)
--- NOTE | 2019-06-19 11:42 | NUR ---
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 PT HAS A HX OF GERD, USES MARIJUANA AND ANXIETY. ADMINISTERED IVF FOR HYDRATION, IV REGLAN AND PEPCID, DIET TOLERATED AND PAIN MEDS MORPHINE. DC PLAN TO GO HOME WHEN STABLE. CM TO FOLLOW. Addendum: 06/21/19 at 1227 by Belinda Chung CM DC PLANNING: CONTINUE IVF FOR HYDRATION GI CONSULT WITH DR CHARLTON CONSIDERING EGD TODAY. CM TO FOLLOW
--- NOTE | 2019-06-19 12:30 | NUR ---
PATIENT IS RESTING IN BED, SLEEPING, MEDICATED WITH ATIVAN FOR ANXIETY AND TO HELP WITH NAUSEA. POTASSIUM IV IS RUNNING FOR A POTASSIUM LEVEL AT 2.8. FAMILY MEMBER AT BEDSIDE. CALL LIGHT ON AND WITHIN REACH. WILL CONTINUE TO MONITOR.
[2019-06-19] MEDS: POTASSIUM CHL 20 MEQ/D5-1/2NS 1,000 ML IV SCH (12:32)
--- NOTE | 2019-06-19 15:00 | NUR ---
PATIENT WAS GIVEN MEDICATION FOR BACK PAIN, IV POTASSIUM RUNNING AT 75 ML/HR, TOLERATING WELL. PATIENT IS RESTING IN BED WITH SIGNIFICANT OTHER AT BEDSIDE. WILL CONTINUE TO MONITOR.
[2019-06-19] MEDS: MORPHINE SULFATE 2 MG/ML SYR IVP PRN (15:24)
[2019-06-19 16:00] VITALS: BP 124/83
--- NOTE | 2019-06-19 17:30 | NUR ---
PATIENT IS RESTING IN BED, MEDICATIONS GIVEN FOR DISCOMFORT. SIGNIFICANT OTHER AT BEDSIDE. IV CAME OUT AND A NEW IV WAS REINSERTED IN THE RIGHT AC. 22 GAUGE. WILL CONTINUE TO MONITOR.
--- NOTE | 2019-06-19 19:15 | NUR ---
REPORT GIVEN TO PHYSICAL THERAPY RESIDENT NURSE FOR CONTINUATION OF CARE.
--- NOTE | 2019-06-19 19:20 | NUR ---
RECEIVED FROM AM RN IN BED SLEEPING WITH BOYFRIEND. INFORMED CHARGE NURSE ABOUT IT. PT. ADVISED BY CHARGE NURSE THAT BOYFRIEND NOT ALLOWED TO SLEEP WITH HER. PT. DENIES PAIN AT THIS TIME. WENT BACK TO SLEEP. CALL LIGHT WITH IN REACH. CARE PLANS FOR THE NIGHT DISCUSSED WITH HER.
--- NOTE | 2019-06-19 23:00 | NUR ---
BOYFRIEND LEFT . NO COMPLAINTS DONE. WAKES UP AND GOES BACK TO SLEEP. CALL LIGHT WITH IN REACH.
[2019-06-20] VITALS: BP 118/80
[2019-06-20] MEDS: POTASSIUM CHL 20 MEQ/D5-1/2NS 1,000 ML IV SCH ×2 (02:57→13:55)
--- NOTE | 2019-06-20 03:04 | NUR ---
SLEEPING WELL. NO COMPLAINTS DONE THIS SHIFT.
[2019-06-20] MEDS: METOCLOPRAMIDE 10 MG/2 ML INJ VIAL IVP SCH ×3 (06:39→20:10)
[2019-06-20 07:03] LABS: ANION GAP 12.5 (8-16); CARBON DIOXIDE 25.8 mmol/L (21-32); CREATININE 0.6 mg/dL (0.6-1.3); POTASSIUM 3.3 mmol/L (3.5-5.1)
--- NOTE | 2019-06-20 07:21 | NUR ---
SLEPT WELL THIS SHIFT. CALL LIGHT WITH IN REACH. NO SOB. NO NAUSEA AND VOMITING NOTED THIS SHIFT.
--- NOTE | 2019-06-20 07:22 | NUR ---
Received report from PM nurse. Pt is asleep on room air, running K Cl D5 1/2 NS at 75 mls/hr, bed at lowest position, call light within reach.
[2019-06-20] MEDS: ONDANSETRON 4 MG/2 ML VIAL IVP PRN (07:49)
[2019-06-20] MEDS: MORPHINE SULFATE 4 MG/ML SYR IVP PRN ×2 (07:49→13:12)
--- NOTE | 2019-06-20 07:49 | NUR ---
Pt vomited and is complaining of nausea. Administered PRN zofran. Will continue to monitor.
--- NOTE | 2019-06-20 07:49 | NUR ---
Pt complains of abdominal pain after vomiting and having a BM this morning. Administered PRN morphine. Will reassess.
[2019-06-20 08:00] VITALS: BP 119/86
--- NOTE | 2019-06-20 08:49 | NUR ---
Pt x3 episodes of vomiting. 300 mls output, greenish emesis. Continues to complain of nausea and abdominal pain.
[2019-06-20] MEDS: FAMOTIDINE 20 MG/2 ML VIAL IV SCH ×2 (08:50→20:09)
--- NOTE | 2019-06-20 09:30 | NUR ---
Dr. Patricia did rounds on pt and put an order in for GI consult. Doctor aware of pt's persistent episodes of nausea and vomiting.
--- NOTE | 2019-06-20 09:45 | NUR ---
Pt requested shower. Assisted to shower room and accompanied by pt's boyfriend.
--- NOTE | 2019-06-20 10:00 | NUR ---
Pt is back from shower and assisted by boyfriend. Pt is feeling anxious, active listening and reassurance provided. Administered PRN ativan.
[2019-06-20] MEDS: LORazepam 2 MG/ML VIAL IVP PRN (10:16)
--- NOTE | 2019-06-20 11:00 | NUR ---
Pt is sleeping with boyfriend at bedside. Running D5 1/2 NS with K Cl at 75 mls/ hr, bed at lowest position, call light within reach.
--- NOTE | 2019-06-20 14:30 | NUR ---
Pt asleep with family at bed side. Pt non labored bilateral breathing, bed at lowest position, call light within reach.
--- NOTE | 2019-06-20 14:39 | NUR ---
Notified Dr. Cruz about pt's magnesium and potassium levels. New orders received. Noted and carried out.
[2019-06-20] MEDS ORDERED: MAG SULF 2000 MG/WATER PREMIX 50 ML IV SCH (15:00)
[2019-06-20] MEDS ORDERED: POTASSIUM CHLORIDE 10 MEQ TABER PO SCH (15:00)
[2019-06-20 16:00] VITALS: BP 95/57
--- NOTE | 2019-06-20 18:30 | NUR ---
Received call from Dr Lorenzana stating he will see pt tomorrow morning, & to initiate soft diet as tolerated. Pt notified & agree with POC.
--- NOTE | 2019-06-20 19:20 | NUR ---
RECEIVED BEDSIDE REPORT FROM AM RN. BOY FRIEND AT BEDSIDE. NO SOB NOTED. DENIED PAIN, NO DISTRESS NOTED. IV SITE ON BRIDGER 22G, PATENT, INTACT, AND ASYMPTOMATIC. SKIN INTACT, WARM AND DRY TO TOUCH. BOARD UPDATED, CARE PLANS FOR THE NIGHT DISCUSSED WITH HER. PT VERBALIZED UNDERSTANDING. BED IN LOW POSITION, CALL LIGHT WITHIN REACH.
--- NOTE | 2019-06-20 20:10 | NUR ---
GIVEN REGLAN AND PEPCID MD ORDERED. PT TOLERATED WELL.
[2019-06-21] VITALS: BP 101/65
--- NOTE | 2019-06-21 00:05 | NUR ---
VS CHECKED, WITHIN PT'S BASELINE, WILL CONTINUE TO MONITOR.
--- NOTE | 2019-06-21 02:23 | NUR ---
PT SLEEPING IN BED. NO ACUTE DISTRESS NOTED
[2019-06-21] MEDS: POTASSIUM CHL 20 MEQ/D5-1/2NS 1,000 ML IV SCH ×3 (03:15→20:07)
[2019-06-21] MEDS: METOCLOPRAMIDE 10 MG/2 ML INJ VIAL IVP SCH ×3 (05:05→22:36)
--- NOTE | 2019-06-21 05:05 | NUR ---
GIVEN REGLAN MD ORDERED. PT TOLERATED WELL.
[2019-06-21] MEDS: MORPHINE SULFATE 4 MG/ML SYR IVP PRN ×2 (05:27→09:44)
--- NOTE | 2019-06-21 05:27 | NUR ---
PT C/O 8/ ABD PAIN, GIVEN MORPHINE MD ORDERED. PT TOLERATED WELL. WILL CONTINUE TO MONITOR.
--- NOTE | 2019-06-21 06:38 | NUR ---
PT IN STABLE CONDITION. WILL ENDORSE PT TO DAY SHIFT NURSE FOR CONTINUOUS CARE.
[2019-06-21] MEDS: ONDANSETRON 4 MG/2 ML VIAL IVP PRN (06:53)
--- NOTE | 2019-06-21 06:53 | NUR ---
PT VOMITING. GIVEN ZOFRAN MD ORDERED. PT TOLERATED WELL. DR. CHARLTON CAME. ORDERED AMYLASE AND LIPASE ORDERED.
--- NOTE | 2019-06-21 07:00 | NUR ---
RECEIVED REPORT FROM NIGHT NURSE, PT STABLE
[2019-06-21 08:00] VITALS: BP 159/88
[2019-06-21] MEDS: FAMOTIDINE 20 MG/2 ML VIAL IV SCH ×2 (08:45→22:37)
[2019-06-21] MEDS: MORPHINE SULFATE 2 MG/ML SYR IVP PRN ×2 (08:46→13:12)
--- NOTE | 2019-06-21 08:46 | NUR ---
GAVE MORPHINE FOR PAIN OF 6/10 IN ABDOMEN, PT TOLERATED WELL, ALSO GAVE ORDERED MORNING MEDICATION.
--- NOTE | 2019-06-21 09:51 | NUR ---
GAVE MORPHINE FOR PAIN OF 10/10 SEVERE PAIN, PT CRYING, FATHER AT BEDSIDE MASSAGE PT BACK.
--- NOTE | 2019-06-21 11:00 | NUR ---
PT ASLEEP IN BED. FATHER AT BEDSIDE. CALL LIGHT WITHIN REACH.
--- NOTE | 2019-06-21 13:22 | NUR ---
GAVE MORPHINE FOR PAIN LEVEL OF 6/10, PT IS CRYING, FATHER AT BEDSIDE. CALL LIGHT WITHIN REACH.
[2019-06-21 16:00] VITALS: BP 97/63
--- NOTE | 2019-06-21 16:00 | NUR ---
PT IN RESTING IN BED, NO SIGNS OF DISTRESS NOTED, CALL LIGHT WITHIN REACH
--- NOTE | 2019-06-21 18:40 | NUR ---
PT RESTING IN BED, FAMILY MEMBER AT BEDSIDE, PT IS STABLE, WILL ENDORSE TO NIGHT NURSE FOR CONTINUITY OF CARE. CALL LIGHT WITHIN REACH.
--- NOTE | 2019-06-21 19:05 | NUR ---
RECD. RESTING IN BED AWAKE, A/OX4. RESPIRATION EVEN AND UNLABORED. IV OF D5 1/2 NS 20 MEQ KCL INFUSING AT 75 ML/HR LEFT AC G22. NO NOTED N/V AT THIS TIME, CONVERSING WITH VISITOR AT THE BEDSIDE. PLAN OF CARE FOR THE SHIFT DISCUSSED. VERBALIZED UNDERSTANDING. DENIES PAIN 0/10.
--- NOTE | 2019-06-21 20:30 | NUR ---
REQUESTED FOR TUNA SANDWICH, ABLE TO EAT WITHOUT N/V AFTER EATING.
--- NOTE | 2019-06-21 22:00 | NUR ---
CARE PLAN REVIEWED WITH DAVID BLACKMAN LVN
[2019-06-22] VITALS: BP 102/65
--- NOTE | 2019-06-22 | NUR ---
SLEEPING COMFORTABLY IN BED.
--- NOTE | 2019-06-22 03:00 | NUR ---
STILL SLEEPING COMFORTABLY IN BED.
[2019-06-22] MEDS: MORPHINE SULFATE 4 MG/ML SYR IVP PRN ×3 (05:32→21:42)
[2019-06-22] MEDS: METOCLOPRAMIDE 10 MG/2 ML INJ VIAL IVP SCH ×3 (05:33→20:31)
--- NOTE | 2019-06-22 05:33 | NUR ---
VOMITED MODERATE AMOUNT OF SOLID, MEDICATED WITH REGLAN BY COLLEEN RAMIREZ.
--- NOTE | 2019-06-22 06:15 | NUR ---
STILL NAUSEATED, KEEP WARM AND COMFORTABLE IN BED, WITH WARM BLANKETS.
--- NOTE | 2019-06-22 07:20 | NUR ---
IN BED STILL COMPLAINING OF N/V, SEEMS WITH ANXIETY. CONDITION REMAIN STABLE. ENDORSED TO AM SHIFT NURSE FOR CONTINUITY OF CARE.
--- NOTE | 2019-06-22 07:21 | NUR ---
RECEIVED BEDSIDE REPORT FROM DIGITAL COMMENTATOR NURSE. PATIENT IS AWAKE, ALERT AND ORIENTEDX4. NO SIGNS OF DISTRESS ON RA. SKIN IS INTACT. IV ON L AC 20G INFUSING D5 1/2NS W 20MEG KCL AT 75. CLEAN, DRY AND INTACT. PATIENT IS AMBULATORY. CONTINENT. ABLE TO MAKE NEEDS KNOWN. BED IN LOW POSITION. CALL LIGHT WITHIN REACH. WILL CONTINUE TO MONITOR THE PATIENT.
--- NOTE | 2019-06-22 07:33 | NUR ---
PATIENT WANTS TO TAKE A SHOWER. SHE SAID IT RELIEVES PAIN, PATIENTS IV COVERED AND PATIENT IS IN THE SHOWER NOW.
--- NOTE | 2019-06-22 07:59 | NUR ---
PATIENT BACK FROM THE SHOWER IN STABLE CONDITION.
[2019-06-22 08:00] VITALS: BP 145/107
[2019-06-22] MEDS: FAMOTIDINE 20 MG/2 ML VIAL IV SCH ×2 (08:17→20:31)
[2019-06-22] MEDS: ONDANSETRON 4 MG/2 ML VIAL IVP PRN (08:19)
[2019-06-22] MEDS: MORPHINE SULFATE 2 MG/ML SYR IVP PRN (08:21)
--- NOTE | 2019-06-22 08:27 | NUR ---
ADMINISTERED PRN PAIN MED, NAUSEA MED AND ANASTASIIA MED. EDUCATED ON SIDE EFFECTS. PATIENT TOLERATED WELL. PATIENT CONNECTED BACK TO IVF. PATIENT GETTING MASSAGE FROM HER FATHER AT THIS TIME. WILL CONTINUE TO MONITOR
--- NOTE | 2019-06-22 09:05 | NUR ---
DR LOPEZ ORDERED NGT PLACEMENT AND TO LOW INTERMITTENT SUCTION. NGT IN L NARES, ORDERED STAT XRAY TO CONFIRM PLACEMENT. SWOOSH HEARD AND GASTRIC CONTENTS SHOWN IN NGT
--- NOTE | 2019-06-22 09:30 | NUR ---
PATIENT CONNECTED TO LOW INTERMITTENT SUCTION
[2019-06-22] MEDS ORDERED: PPN PER PHARMACY MC PRN (10:25)
--- NOTE | 2019-06-22 11:00 | NUR ---
PATIENT IN NO DISTRESS. LAYING IN BED. WILL CONTINUE TO MONITOR THE PATIENT
[2019-06-22] MEDS: POTASSIUM CHL 20 MEQ/D5-1/2NS 1,000 ML IV SCH (11:43)
[2019-06-22 12:58] LABS: CARBON DIOXIDE 27.7 mmol/L (21-32); CREATININE 0.6 mg/dL (0.6-1.3); POTASSIUM 3.7 mmol/L (3.5-5.1)
--- NOTE | 2019-06-22 13:00 | NUR ---
PATIENT IN NO DISTRESS. WILL CONTINUE TO MONITOR THE PATIENT.
[2019-06-22 13:04] LABS: ALBUMIN 4.5 g/dL (3.4-5.0); BILIRUBIN,DIRECT 0.1 mg/dL (0.0-0.3); TOTAL BILIRUBIN 0.4 mg/dL (0.0-1.0)
--- NOTE | 2019-06-22 14:25 | NUR ---
ADMINISTERED PRN PAIN MED AND ANASTASIIA MED. EDUCATED ON MEDS. PATIENT VERBALIZED UNDERSTANDING. TOLERATED WELL. OLD IV REMOVED TIP INTACT, IT WAS LEAKING. PLACED NEW IV ON R AC 22G. CLEAN, DRY AND INTACT.
[2019-06-22 16:00] VITALS: BP 119/78
--- NOTE | 2019-06-22 16:24 | NUR ---
PATIENT WANTS NGT REMOVED BECAUSE ITS IRRITATING HER AND NO MORE GI CONTENTS COMING OUT. EXPLAINED TO HER THAT I RECOMMEND FOR DR CHARLTON TO SEE THE PATIENT BEFORE I REMOVE IT SO HE CAN TALK TO HER ABOUT NGT AND RECOMMENDATIONS. PATIENT SAID SHE WILL WAIT FOR DR CHARLTON AND SEE WHAT HE RECOMMENDS. AT THIS TIME NGT SUCTION IS STOPPED PER PATIENTS REQUESTS. EXPLAINED TO HER THE RISKS OF STOPPING NGT SUCTION. PATIENT VERBALIZED UNDERSTANDING
--- NOTE | 2019-06-22 18:59 | NUR ---
DR CHARLTON CAME AND HE SAID OK TO REMOVE NGT AND START FULL LIQ DIET. NGT REMOVED. PATIENT TOLERATED WELL. FULL LIQ DIET ORDERED
--- NOTE | 2019-06-22 19:20 | NUR ---
GAVE BEDSIDE REPORT TO CARDIOPULMONARY SPECIALIST NURSE. PATIENT ENDORSED IN STABLE CONDITION. ENDORSED TO CARDIOPULMONARY SPECIALIST NURSE TO ASK DR BALES IF HE WANTS PPN CANCELED SINCE DR LOPEZ PUT PATIENT ON FULL LIQ DIET. ALSO ASKED HER TO ASK DR IF HE WANTS TO ORDER A METER TECHNICIAN CONSULT BECAUSE PATIENT GETS PAINS WHEN ON PERIOD AND ONLY GETS N/V WHEN PATIENT HAS PAIN, SHE SAID SHE HAS AN OVARIAN CYST.
--- NOTE | 2019-06-22 19:21 | NUR ---
RECD. RESTING IN BED, AWAKE, A/OX4. RESPIRATION EVEN AND UNLABORED. IV OF D51/2 NS +20 MEQ KCL INFUSING AT 75 ML/HR, RIGHT AC G22. EATING FULL LIQUID AT THIS TIME, NO N/V NOTED. PLAN OF CARE FOR THE SHIFT DISCUSSED. VERBALIZED UNDERSTANDING. DENIES PAIN 0/10. BOYFRIEND AT THE BEDSIDE.
--- NOTE | 2019-06-22 19:40 | NUR ---
INQUIRED ON DR. BALES IF WE STILL HAVE TO HANG PPN FOR THE PATIENT SINCE SHE IS ALREADY ON FULL LIQUID DIET, STATED YES BECAUSE PT HAS NOT BEEN EATING WELL, REGARDING OB CONSULT, MD IN THE MORNING WILL TAKE GOOD CARE OF IT. INFORMED CHARGE NURSE JODI.
[2019-06-22] MEDS ORDERED: MULTIVITAMIN-12 10 ML in DEXTROSE 50% 600 ML, AMINO ACIDS 8.5% 600 ML, FAT EMULSION 20%... IV SCH ×4 (20:00)
--- NOTE | 2019-06-22 20:00 | NUR ---
Patient's Plan of Care was discussed and reviewed with COMMERCIAL ACCOUNT OFFICER: ARISTIDES BLACKMAN LVN
[2019-06-22 20:16] LABS: MAGNESIUM 2.1 mg/dL (1.8-2.4)
--- NOTE | 2019-06-22 20:31 | NUR ---
PPN STARTED BY COLLEEN PEREZ. DUE JEAN MARIE AND MARITO ALSO GIVEN. PATIENT RESTING COMFORTABLY IN BED. NO COMPLAINT OF PAIN NOR N/V NOTED. Addendum: 06/22/19 at 2058 by Betty Blackman LEGAL ADMINISTRATOR CORRECTION: THIS CHARTING IS ENTERED BY BETTY BLACKMAN NOT BY CHRIS MENDEZ.
[2019-06-22] MEDS ORDERED: INSULIN LISPRO SLIDING SCALE 100 UNITS/ML VIAL SUBQ PRN (21:00)
--- NOTE | 2019-06-22 21:45 | NUR ---
NAUSEATED, ICE CHIPS GIVEN.
--- NOTE | 2019-06-22 21:51 | NUR ---
INFORMED ACCU CHECK WILL BE DONE AT 0000 BECAUSE SHE IS ON PPN. VERBALIZED UNDERSTANDING.
[2019-06-23] VITALS: BP 106/83
[2019-06-23] MEDS: BLOOD GLUCOSE MONITORING 1 DEV DEV MC SCH ×3 (00:51→12:17)
[2019-06-23 01:50] VITALS: BP 140/96
[2019-06-23] MEDS: ONDANSETRON 4 MG/2 ML VIAL IVP PRN ×2 (01:55→06:04)
[2019-06-23] MEDS: MORPHINE SULFATE 4 MG/ML SYR IVP PRN ×2 (01:55→06:04)
--- NOTE | 2019-06-23 01:55 | NUR ---
NAUSEATED, VOMITED MODERATE AMOUNT OF SOLIDS WITH SOME LIQUID, ALSO HAVING ABDOMINAL PAIN, MEDICATED BY COLLEEN PEREZ PER MD ORDER.
--- NOTE | 2019-06-23 02:25 | NUR ---
NO N/V N0TED. SLEEPING COMFORTABLY IN BED.
[2019-06-23] MEDS: METOCLOPRAMIDE 10 MG/2 ML INJ VIAL IVP SCH (04:08)
--- NOTE | 2019-06-23 04:10 | NUR ---
VOMITED MODERATE AMOUNT OF SOLIDS, MEDICATED WITH REGLAN BY COLLEEN CALLES PER MD ORDER.
--- NOTE | 2019-06-23 04:40 | NUR ---
SITTING ON BED, NO N/V NOTED.
--- NOTE | 2019-06-23 06:55 | NUR ---
DR. CHARLTON CAME AND EXAMINED PATIENT. WILL FOLLOW UP ANY NEW ORDER FOR PATIENT.
--- NOTE | 2019-06-23 07:10 | NUR ---
RECEIVED BEDSIDE REPORT FROM FOSTER CARE SOCIAL WORKER NURSE. PATIENT IS AWAKE, ALERT AND ORIENTEDX4. NO SIGNS OF DISTRESS ON RA. SKIN IS INTACT. ABLE TO MAKE NEEDS KNOWN. IV ON R AC 22G INFUSING PPN AT 50. CLEAN, DRY AND INTACT. CONTINENT, AMBULATORY. W HEATING PAD TO HELP W HER PAIN. BED IN LOW POSITION. CALL LIGHT WITHIN REACH. WILL CONTINUE TO MONITOR THE PATIENT.
[2019-06-23 07:32] LABS: CARBON DIOXIDE 25.8 mmol/L (21-32); CREATININE 0.7 mg/dL (0.6-1.3); POTASSIUM 3.8 mmol/L (3.5-5.1)
[2019-06-23 08:00] VITALS: BP 107/66
[2019-06-23] MEDS: POTASSIUM CHL 20 MEQ/D5-1/2NS 1,000 ML IV SCH (08:35)
[2019-06-23 09:37] LABS: MAGNESIUM 1.9 mg/dL (1.8-2.4); PHOSPHORUS 3.9 mg/dL (2.5-4.9)
[2019-06-23] MEDS: FAMOTIDINE 20 MG/2 ML VIAL IV SCH (10:08)
--- NOTE | 2019-06-23 10:11 | NUR ---
ADMINISTERED MEDS. EDUCATED ON SIDE EFFECTS. WILL CONTINUE TO MONITOR THE PATIENT.
[2019-06-23] MEDS ORDERED: OMEP20TC12 PO (11:43)
[2019-06-23] MEDS ORDERED: METO-485 PO (11:43)
--- NOTE | 2019-06-23 12:30 | NUR ---
PATIENT IN NO DISTRESS. DAD AT BEDSIDE
--- NOTE | 2019-06-23 13:00 | NUR ---
EDUCATED ON DISEASE PROCESS. ABN S/SX, WHEN TO GO TO THE ER, EDUCATED ON FOLLOW UP W PCP AND GET REFERRAL TO SEE OBGYN, EDUCATED ON MEDS AND GAVE PRESCRIPTIONS, IV REMOVED, TIP INTACT. ID BANDS REMOVED. FLU VACCINE UP TO DATE, PNA NOT A CANDIDATE. PATIENT LEFT IN STABLE CONDITION TO GO HOME WITH FATHER
--- NOTE | 2019-06-24 14:56 | NUR ---
PCP Appointment: WILL contacted Dr. Tyler Reyna's office to schedule hospital follow up. SW was informed that patient made appointment to be at 930 on 06/29/2019 @ [address] [place] [place] [address]. No further needs identified.
== END 2019-06-23 13:00 | disposition home or self-care (01) | DRG 249 ==
LOC: MED 07:46 → MTU 13:52
PROVIDERS: ADMIT Internal Medicine Pulmonary Disease; ATTEND Internal Medicine Pulmonary Disease
DX: R11.15 Cyclical vomiting syndrome unrelated to migraine (principal); E46 Unspecified protein-calorie malnutrition; E87.6 Hypokalemia; K21.9 Gastro-esophageal reflux disease without esophagitis; E86.0 Dehydration; F41.9 Anxiety disorder, unspecified; F12.90 Cannabis use, unspecified, uncomplicated; R62.7 Adult failure to thrive; Z68.1 Body mass index [BMI] 19.9 or less, adult; Z88.8 Allergy status to other drugs, medicaments and biological substances; Z90.49 Acquired absence of other specified parts of digestive tract
CPT/HCPCS: 36415; 71045; 80048; 80053; 80076; 80305; 81003; 82150; 82948; 83690; 83735; 84100; 84478; 85025; 87081; 93005; 96361; 96374; 96375; 99285; A9153; J1630; J2060; J2270; J2405; J2765; J3475; J3480; J3490; J7030; J7120; Q0092

== ENCOUNTER 2020-03-31 13:14 | Emergency (ER) | payer OTHER ==
[~2020-03-31] VITALS: Ht 154.9 cm; Wt 42.2 kg
[~2020-03-31 13:14] MED LIST changes: -ACET-2619 PO; -ACET-8386 PO; +OMEP20TC12 PO; -ONDA4TAB PO
[2020-03-31 13:19] VITALS: BP 112/71
--- NOTE | 2020-03-31 13:23 | NUR ---
25/F c/o epigastric pain with N/V x2 days. Pt also reports the pain radiates to her back. Patient is highly restless, shaking, tearful due to pain. Patient is very restless and shaky in the bed. Patient moaning and shaking body while in bed. Patient has had no active vomiting in bed. Emesis bag noted with approximately 200 cc of bileous fluid inside bag. Pt provided with a new emesis bag. Pt c/o pain to epigastric area, 10/10, burning radiating to upper back. Patient denies fever or chills. Pt has hx GERD.
[2020-03-31] MEDS ORDERED: diphenhydrAMINE 50 MG/ML VIAL IVP ONE (13:35)
[2020-03-31] MEDS ORDERED: NACL 0.9% 1,000 ML IV ONE (13:35)
[2020-03-31] MEDS ORDERED: HALOPERIDOL IM 5 MG/ML VIAL IM ONE (13:35)
[2020-03-31] MEDS ORDERED: CAPSAICIN 0.025% CRE 60 GM TUBE TP STA (13:35)
[2020-03-31 13:46] LABS: BASOPHILS # (AUTO) 0.1 K/uL (0.00-0.22); BASOPHILS % (AUTO) 1.2 % (0.0-2.0); EOSINOPHILS % (AUTO) 0.1 % (0.0-4.0); HEMATOCRIT 44.8 % (36-48); HEMOGLOBIN 15.5 g/dL (12.0-16.0); LYMPHOCYTES # (AUTO) 1.9 K/uL (2.5-16.5); LYMPHOCYTES % (AUTO) 20.4 % (20.5-51.1); MEAN CORPUSCULAR HEMOGLOBIN 31 pg (27-31); MEAN CORPUSCULAR HGB CONC 35 g/dL (33-37); MEAN CORPUSCULAR VOLUME 90.2 fL (80-94); MONOCYTES # (AUTO) 0.6 K/uL (0.8-1.0); NEUTROPHILS # (AUTO) 6.6 K/uL (1.8-7.7); NEUTROPHILS % (AUTO) 71.3 % (42.2-75.2); PLATELET COUNT (AUTO) 350 K/uL (140-450); RED BLOOD CELL COUNT(AUTO) 4.96 MIL/uL (4.20-5.40); WHITE BLOOD COUNT (AUTO) 9.2 K/uL (4.8-10.8)
--- NOTE | 2020-03-31 13:54 | NUR ---
Pt report given to Alise Faulkner RN. Transfer of care at this time.
[2020-03-31 14:06] LABS: ALBUMIN 5.1 g/dL (3.4-5.0); ANION GAP 19.6 (8-16); CARBON DIOXIDE 24.8 mmol/L (21-32); POTASSIUM 3.4 mmol/L (3.5-5.1); TOTAL BILIRUBIN 0.7 mg/dL (0.0-1.0)
--- NOTE | 2020-03-31 14:14 | NUR ---
pt states unable pt provide urine sample at this time
--- NOTE | 2020-03-31 14:44 | NUR ---
pt amb to restroom steady gait to attempt to provide urine sample
--- NOTE | 2020-03-31 14:51 | NUR ---
URINE SAMPLE DROPPED OFF AT LAB
[2020-03-31 15:09] LABS: APPEARANCE,URINE HAZY (CLEAR); BILIRUBIN,URINE NEGATIVE (NEGATIVE); BLOOD, URINE 1+ (NEGATIVE); COLOR,URINE YELLOW (YELLOW); LEUKOCYTE ESTERASE ,URINE TRACE (NEGATIVE); NITRITE, URINE NEGATIVE (NEGATIVE); UGLUCOSE NEGATIVE (NEGATIVE)
[2020-03-31 15:20] LABS: WBC,URINE 0-5 /HPF (0-5)
--- NOTE | 2020-03-31 15:49 | NUR ---
DR. JUNIOR RE-EVALUATING PT AT BEDSIDE
--- NOTE | 2020-03-31 16:35 | NUR ---
Patient discharged with v/s stable. Written and verbal after care instructions given and explained. Patient alert, oriented and verbalized understanding of instructions. Ambulatory with steady gait. All questions addressed prior to discharge. ID band removed. Patient advised to follow up with PMD. Rx of Reglan and Benadryl given. Patient educated on indication of medication including possible reaction and side effects. Opportunity to ask questions provided and answered.
[2020-03-31 16:36] VITALS: BP 97/63
== END 2020-03-31 16:35 | disposition home or self-care (01) ==
LOC: MED 13:14
DX: F12.188 Cannabis abuse with other cannabis-induced disorder (principal); G89.29 Other chronic pain; R10.9 Unspecified abdominal pain; R11.10 Vomiting, unspecified
CPT/HCPCS: 36415; 80053; 81001; 83690; 84702; 85025; 87086; 96361; 96372; 96374; 99284; J1200; J1630; J7030

== ENCOUNTER 2021-09-15 17:49 | Emergency (ER) | payer OTHER ==
[~2021-09-15] VITALS: Ht 157.5 cm; Wt 45.0 kg
[~2021-09-15 17:49] MED LIST changes: +OMEP-278 PO; -OMEP20TC12 PO
[2021-09-15 17:56] VITALS: BP 116/104
[2021-09-15] MEDS ORDERED: KETOROLAC 15 MG/ML VIAL IVP ONE (20:25)
[2021-09-15] MEDS ORDERED: ONDANSETRON 4 MG/2 ML VIAL IVP ONE (20:25)
[2021-09-15 21:32] LABS: ALBUMIN 5.3 g/dL (3.4-5.0); ANION GAP 17.3 (8-16); CREATININE 0.8 mg/dL (0.6-1.3); POTASSIUM 3.3 mmol/L (3.5-5.1); TOTAL BILIRUBIN 0.6 mg/dL (0.0-1.0)
[2021-09-15 21:36] LABS: BASOPHILS # (AUTO) 0.1 K/uL (0.00-0.22); BASOPHILS % (AUTO) 0.6 % (0.0-2.0); HEMATOCRIT 43.1 % (36-48); HEMOGLOBIN 14.5 g/dL (12.0-16.0); LYMPHOCYTES # (AUTO) 2.1 K/uL (2.5-16.5); LYMPHOCYTES % (AUTO) 15.2 % (20.5-51.1); MEAN CORPUSCULAR HEMOGLOBIN 31 pg (27-31); MEAN CORPUSCULAR HGB CONC 34 g/dL (33-37); MEAN CORPUSCULAR VOLUME 90.8 fL (80-94); MONOCYTES # (AUTO) 0.9 K/uL (0.8-1.0); MONOCYTES % (AUTO) 6.3 % (1.7-9.3); NEUTROPHILS % (AUTO) 77.9 % (42.2-75.2); PLATELET COUNT (AUTO) 305 K/uL (140-450); RED BLOOD CELL COUNT(AUTO) 4.75 MIL/uL (4.20-5.40); RED CELL DISTRIBUTION WIDTH 12.6 % (11.6-13.7); WHITE BLOOD COUNT (AUTO) 14.1 K/uL (4.8-10.8)
[2021-09-15] MEDS ORDERED: NACL 0.9% 1,000 ML IV ONE (22:15)
[2021-09-15] MEDS ORDERED: FAMOTIDINE 20 MG/2 ML VIAL IVP ONE (22:15)
[2021-09-15] MEDS ORDERED: POTASSIUM CHLORIDE 10 MEQ TABER PO ONE (22:40)
[2021-09-15] MEDS ORDERED: FAMO-90 PO (22:42)
[2021-09-15] MEDS ORDERED: ONDA-188 SL (22:42)
[2021-09-15] MEDS ORDERED: HYDROcodone/APAP 10/325 MG 1 TAB TAB PO ONE (22:50)
[2021-09-15] MEDS ORDERED: LIDOCAINE 5% 1 EA PATCH TP ONE (23:03)
[2021-09-16 00:33] VITALS: BP 126/88
[2021-09-16] MEDS ORDERED: LIDOCAINE 5% 1 EA PATCH TP SCH (09:00)
== END 2021-09-16 00:34 | disposition home or self-care (01) ==
LOC: MED 17:49
DX: N92.6 Irregular menstruation, unspecified (principal); K21.9 Gastro-esophageal reflux disease without esophagitis; Z90.49 Acquired absence of other specified parts of digestive tract; Z79.899 Other long term (current) drug therapy; Z88.6 Allergy status to analgesic agent
CPT/HCPCS: 36415; 80053; 81002; 81025; 83690; 85025; 96361; 96374; 96375; 99284; J1885; J2405; J3490; J7030